=== PATIENT | male | born 1940 | race Caucasian/White ===

== ENCOUNTER 2018-06-11 15:23 | Observation (INO) | payer MEDICARE ==
[~2018-06-11] VITALS: Ht 167.6 cm; Wt 88.0 kg
[~2018-06-11 15:23] MED LIST: ASPI1TAB PO; ASPI81TA85 PO; CARV6.25 PO; DIGO0.126 PO; FLOM0.4C39 PO; FURO20TA2 PO; LASI20TA PO; LASI20TA3 PO; LOSA50TA20 PO; LOSA50TA88 PO; MULTTAB4 PO; TYLE325T5 PO; VITMTA PO
[2018-06-11] MEDS ORDERED: DERMABOND TOPICAL SKIN ADHESIVE TOP ONE (16:15)
--- NOTE | 2018-06-11 17:00 | REP ---
CT Head without contrast HISTORY: Syncope COMPARISON: 03/17/2015 Areas of decreased attenuation are present in the periventricular white matter. This represents small-vessel ischemic disease. A small area of decreased attenuation is present in the periventricular white matter of the left frontal and temporal lobes. There is dilatation of the anterior horn and body of the left lateral ventricle. This represents encephalomalacia. There is no intraparenchymal hemorrhage, acute infarct, mass or midline shift. The ventricular system and cortical sulci are dilated consistent with minimal volume loss. There is no extra cerebral collection. There is no fracture. Mucosal thickening is present in the left maxillary sinus. IMPRESSION: 1. Small vessel ischemic disease. 2. Left frontal temporal lobe encephalomalacia. 3. Minimal volume loss. Electronically Signed by Perico Duff MD 06/11/2018 04:51 P
--- NOTE | 2018-06-11 17:08 | REP ---
CT cervical spine without contrast HISTORY: Syncope COMPARISON: None There is no acute fracture or subluxation. A disc bulge is present at the C2-3 level. Disc bulges with associated osteophyte formation are present at the C3-4 through C7-T1 levels. There is minimal to moderate narrowing of the spinal canal. Uncinate process and/or facet hypertrophy are present at the C2-3 through C7-T1 levels. These findings produce minimal to severe narrowing of the neural foramina. The C3-4 through C7-T1 intervertebral discs are decreased in height consistent with disc degeneration. IMPRESSION: 1. There is no acute fracture or subluxation. 2. There is cervical spondylosis at the C2-3 through C7-T1 levels. Electronically Signed by Perico Duff MD 06/11/2018 04:59 P
--- NOTE | 2018-06-11 17:17 | REP ---
Chest one-view HISTORY: Syncope Comparison: 06/29/2013 A minimal increase in interstitial markings is present in the lungs consistent with chronic interstitial change. The heart is normal in size. The pulmonary vasculature is normal in appearance. Degenerative change is present in the shoulders. Impression: Chronic interstitial change. Electronically Signed by Perico Duff MD 06/11/2018 05:08 P
[2018-06-11 17:44] LABS: BASO % 0.3 % (0.0-1.0); EOS # 0.2 10^3/uL (0.0-0.50); EOS % 1.9 % (0.0-3.0); HEMATOCRIT 44.7 % (42.0-52.0); HEMOGLOBIN 15.1 g/dl (13.5-17.5); LYMPH # 1.1 10^3/uL (1.5-4.5); LYMPH % 13.3 % (24.0-44.0); MEAN CORPUSCULAR HEMOGLOBIN 30.2 pg (27.0-33.0); MEAN CORPUSCULAR HGB CONC 33.8 g/dl (32.0-36.5); MEAN CORPUSCULAR VOLUME 89.4 fl (80.0-96.0); MONO # 0.6 10^3/uL (0.0-0.8); MONO % 7.3 % (0.0-5.0); NEUTROPHILS # 6.6 10^3/uL (1.8-7.7); NEUTROPHILS % 76.9 % (36.0-66.0); PLATELET COUNT, AUTOMATED 171 10^3/uL (150-450); WHITE BLOOD COUNT 8.6 10^3/uL (4.0-10.0)
[2018-06-11 17:53] LABS: INR 1.03; PROTHROMBIN TIME 13.6 SECONDS (12.1-14.4)
[2018-06-11 17:54] LABS: PARTIAL THROMBOPLASTIN TIME 28.6 SECONDS (25.4-37.6)
--- NOTE | 2018-06-11 18:27 | REP ---
MAXILLOFACIAL CT WITHOUT CONTRAST: HISTORY: Syncope. There are fractures of the medial wall and floor of the left orbit. There is enlargement of the left inferior rectus muscle consistent with edema and or hematoma. Increased soft tissue density is present in the inferior aspect of the left orbit that represents edema and or hematoma. The remaining left rectus muscles, optic nerve, and globe are normal in appearance. Contents of the right orbit are normal. A small air fluid level is present in the left maxillary sinus. The remaining sinuses are clear. The osteomeatal units are patent. The middle and inferior nasal turbinates are partially paradoxical. There is essie bullosa on the left middle nasal turbinate. There is mild deviation of the nasal septum to the right. A small spur is present arising from the right side of the nasal septum. The cribriform plate, medial boone of the orbits and optic canals are intact. The carotid canals form a segment of the posterolateral boone of the sphenoid sinus. Soft-tissue swelling is present overlying the nasal bones and left maxillary sinus. IMPRESSION:There are fractures of the medial wall and floor of the left orbit. Electronically Signed by Perico Duff MD 06/11/2018 06:40 P
[2018-06-11 18:35] LABS: BLOOD UREA NITROGEN 20 MG/DL (7-18); CALCIUM LEVEL 8.3 MG/DL (8.8-10.2); CARBON DIOXIDE LEVEL 25 MEQ/L (21-32); CHLORIDE LEVEL 106 MEQ/L (98-107); CPK CREATINE PHOSPHOKINASE 112 U/L (39-308); CREATININE FOR GFR 0.82 MG/DL (0.70-1.30); ETHYL ALCOHOL (ETHANOL) < 0.003 % (0.000-0.010); GLOMERULAR FILTRATION RATE > 60.0 (>35); GLUCOSE, FASTING 114 MG/DL (70-100); MB/CK RELATIVE INDEX 1.96 (< OR =4); POTASSIUM SERUM 4.1 MEQ/L (3.5-5.1); SODIUM LEVEL 141 MEQ/L (136-145); THYROID STIMULATING HORMONE 0.122 uIU/ML (0.358-3.740); TROPONIN I < 0.02 NG/ML (< 0.10)
[2018-06-11] MEDS ORDERED: FLOM0.4C39 PO (19:56)
[2018-06-11] MEDS ORDERED: TERA5CAP3 PO (20:06)
[2018-06-11] MEDS ORDERED: FUROSEMIDE 20 MG TAB PO PRN (20:30)
[2018-06-11] MEDS ORDERED: ONDANSETRON 4MG/2ML VIAL (J2405) IV PRN (20:30)
[2018-06-11] MEDS ORDERED: ACETAMINOPHEN 325 MG TAB PO PRN (20:30)
[2018-06-11 20:39] LABS: FREE T4 1.24 NG/DL (0.76-1.46)
[2018-06-11] MEDS ORDERED: TAMSULOSIN 0.4 MG CAP PO SCH (21:00)
--- NOTE | 2018-06-11 21:24 | HPEPDOC ---
[facility] Medical History & Physical Date of Admission Jun 11, 2018 Other Provider Dictating/admitting: Emily Wisdom M.D. Attending Physician: OSCAR PLUNKETT MD History and Physical CHIEF COMPLAINT: Fall 1 day HISTORY OF PRESENT ILLNESS: Patient is an 78-year-old man with medical history significant for postpolio syndrome, congestive heart failure (unknown type), hypertension, BPH. According to him, he was in his usual state of health and ambulates with a cane. He went out to his mailbox and the next thing he remembered was staring up at his neighbor from the ground. He was not sure what happened as he had earlier reported at the emergency room, but at interview, he later reported that though he ambulates with his cane but forgot to activate the spikes at the bottom of the cane in case of ice, he slipped with his cane and fell face forward to the ground hurting his face. He denied any prior loss of consciousness before the incident. He denies any dizziness prior to the incident. He was evaluated in the emergency room with a small cut over his left eye which was treated with glue. Serial imaging done at the ER was unremarkable except fractures of the medial wall and floor of the left orbit seen on maxillofacial x-ray. ENT was curb sided and recommendation was no surgical intervention at this time. Patient should follow in the clinic. Patient denies any nausea, vomiting, chest pain, palpitations, cough, shortness of breath. No change in his bowel or urinary habits. PAST MEDICAL HISTORY: Per [facility] PAST SURGICAL HISTORY: Hernia repair. SOCIAL HISTORY: Patient lives next door to his daughter. He denies alcohol use, not currently smoking. He quit 47 years ago. He denies use of illicit drugs. FAMILY HISTORY: Father: from heart disease Mother: Siblings: Brother from complications of CHF Children: One son and one daughter. Of note, son has high blood pressure, GERD and hypothyroidism and daughter has GERD. ALLERGIES: Please see below. REVIEW OF SYSTEMS: 12 point review of systems negative other than that described in the body of [facility] HOME MEDICATIONS: Please see below. PHYSICAL EXAMINATION: VITAL SIGNS: Temperature 97, pulse 18, respiratory rate 78, blood pressure 145/69, pulse oximetry 97% on room air. GENERAL APPEARANCE: Elderly man, bruise over left orbit but lying calmly in bed, not in any apparent distress. He is not pale, anicteric and afebrile HEENT: Atraumatic. Neck: Supple. LUNGS: Clear to auscultation bilaterally. CARDIOVASCULAR: S1 and 2 heard, no murmurs, rubs or gallops. ABDOMEN: Obese, soft, not tender, not distended. Bowel sounds normoactive. MUSCULOSKELETAL: Apparently within normal limits. EXTREMITIES: No pedal edema, 2+ bilateral pedal pulses noted. NEUROLOGICAL: Awake, alert, oriented 3. PSYCHIATRIC: Normal affect LABORATORY DATA: See below. IMAGING: Maxillofacial x-ray: There are fractures of the medial wall and floor of the left orbit. CT head without contrast: 1. Small vessel ischemic disease. 2. Left frontal temporal lobe encephalomalacia. 3. Minimal volume loss. CT cervical spine without contrast: 1. There is no acute fracture or subluxation. 2. There is cervical spondylosis at the C2-3 through C7-T1 levels. Chest x-ray: Chronic interstitial change. EKG: Normal sinus rhythm, no acute ST or T-wave changes noted. MICROBIOLOGY: Please see below. ASSESSMENT: 78-year-old man with hypertension, BPH, CHF, had mechanical fall or possible syncope prior to fall with resultant trauma to the head with orbital fracture shown on imaging. ENT recommends patient should follow in the clinic as there is no surgical intervention indicated at this time. DIAGNOSES: 1. Mechanical fall/possible syncope. . PLAN: 1. I will admit patient to the PCU on observation under care of Dr. Plunkett 2. Possible syncope. We'll continue with cardiac monitoring. Echocardiogram in the morning. We will hold aspirin as patient had trauma to the head. He may rest art aspirin at discharge. 3. Hypertension. Will continue by mouth medications. Ex 4. Will resume outpatient medications. 5. GI prophylaxis that indicated at this time. 6. DVT prophylaxis, TEDs. 7. Further management will be per patient's clinical course. Vital Signs Vital Signs Date Time Temp Pulse Resp B/P (MAP) Pulse Ox O2 Delivery O2 Flow Rate FiO2 06/11/18 18:50 78 96 Room Air 06/11/18 18:45 145/69 (94) 06/11/18 15:36 99.0 17 Laboratory Data Labs 24H Laboratory Tests 2 06/11/18 17:33: Immature Granulocyte % (Auto) 0.3, White Blood Count 8.6, Red Blood Count 5.00, Hemoglobin 15.1, Hematocrit 44.7, Mean Corpuscular Volume 89.4, Mean Corpuscular Hemoglobin 30.2, Mean Corpuscular Hemoglobin Concent 33.8, Red Cell Distribution Width 13.0, Platelet Count 171, Neutrophils (%) (Auto) 76.9H, Lymphocytes (%) (Auto) 13.3L, Monocytes (%) (Auto) 7.3H, Eosinophils (%) (Auto) 1.9, Basophils (%) (Auto) 0.3, Neutrophils # (Auto) 6.6, Lymphocytes # (Auto) 1.1L, Monocytes # (Auto) 0.6, Eosinophils # (Auto) 0.2, Basophils # (Auto) 0.0, Nucleated Red Blood Cells % (auto) 0.0, Prothrombin Time 13.6, Prothromb Time International Ratio 1.03, Activated Partial Thromboplast Time 28.6, Anion Gap 10, Glomerular Filtration Rate > 60.0, Blood Urea Nitrogen 20H, Creatinine 0.82, Sodium Level 141, Potassium Level 4.1, Chloride Level 106, Carbon Dioxide Level 25, Calcium Level 8.3L, Total Creatine Kinase 112, Magnesium Level 2.0, Creatine Kinase MB 2.0, Creatine Kinase MB Relative Index 1.96, Troponin I < 0.02, Thyroid Stimulating Hormone (TSH) 0.122L, Free Thyroxine 1.24, Ethyl Alcohol Level < 0.003 06/11/18 17:51: Urine Color YELLOW, Urine Appearance HAZY, Urine pH 5.0, Urine Specific [place] 1.025, Urine Protein NEGATIVE, Urine Glucose (UA) NEGATIVE, Urine Ketones NEGATIVE, Urine Blood NEGATIVE, Urine Nitrite NEGATIVE, Urine Bilirubin NEGATIVE, Urine Urobilinogen 2.0H, Urine Leukocyte Esterase TRACEH, Urine WBC (Auto) 2, Urine RBC (Auto) 3, Urine Hyaline Casts (Auto) 1, Urine Bacteria (Auto) NEGATIVE, Urine Squamous Epithelial Cells 0, Urine Calcium Oxalate Cryst (Auto) LARGE, Urine Mucus (Auto) SMALL, Urine Sperm (Auto) , Bedside Glucose (M isc Panel) 136H CBC/BMP Laboratory Tests 06/11/18 17:33 Red Blood Count 5.00, Mean Corpuscular Volume 89.4, Mean Corpuscular Hemoglobin 30.2, Mean Corpuscular Hemoglobin Concent 33.8, Red Cell Distribution Width 13.0, Neutrophils (%) (Auto) 76.9 H, Lymphocytes (%) (Auto) 13.3 L, Monocytes (%) (Auto) 7.3 H, Eosinophils (%) (Auto) 1.9, Basophils (%) (Auto) 0.3, Neutrophils # (Auto) 6.6, Lymphocytes # (Auto) 1.1 L, Monocytes # (Auto) 0.6, Eosinophils # (Auto) 0.2, Basophils # (Auto) 0.0, Calcium Level 8.3 L, Total Creatine Kinase 112 Microbiology Microbiology 06/11/18 Urine Culture, Received Pending Home Medications Scheduled Aspirin (Aspirin 81) 81 Mg Tab, 81 MG PO DAILY Carvedilol (Carvedilol) 6.25 Mg Tab, 6.25 MG PO BID Losartan Potassium (Losartan Potassium) 50 Mg Tab, 50 MG PO DAILY Multivitamins *[facility] STOCKED* (Thera M Plus *[facility] STOCKED*) 1 Tab Tab, 1 TAB PO DAILY Tamsulosin Hydrochloride (Flomax) 0.4 Mg Cap, 0.4 MG PO QHS Terazosin HCl (Terazosin HCl) 5 Mg Cap, 5 MG PO QPM Scheduled PRN Acetaminophen (Tylenol) 325 Mg Tab, 325 MG PO Q4H PRN for PAIN Furosemide (Lasix) 20 Mg Tab, 20 MG PO DAILY PRN for SWELLING Allergies Coded Allergies: Lisinopril (Verified Allergy, 06/29/13) EMILY WISDOM MD Jun 11, 2018 21:24
[2018-06-11] MEDS: CARVedilol 6.25 MG TAB PO SCH (21:48)
[2018-06-11 23:06] VITALS: BP 143/70
[2018-06-11] MEDS ORDERED: SLF 3 ML SYR IV PRN (23:30)
[2018-06-12 04:00] VITALS: BP 130/76
[2018-06-12] MEDS: SLF 3 ML SYR IV SCH ×3 (05:25→21:24)
[2018-06-12 05:44] LABS: BASO % 0.6 % (0.0-1.0); EOS # 0.3 10^3/uL (0.0-0.50); EOS % 4.4 % (0.0-3.0); HEMATOCRIT 41.4 % (42.0-52.0); LYMPH # 1.6 10^3/uL (1.5-4.5); LYMPH % 22.4 % (24.0-44.0); MEAN CORPUSCULAR HGB CONC 33.8 g/dl (32.0-36.5); MEAN CORPUSCULAR VOLUME 88.8 fl (80.0-96.0); MONO # 0.8 10^3/uL (0.0-0.8); MONO % 11.3 % (0.0-5.0); NEUTROPHILS # 4.4 10^3/uL (1.8-7.7); PLATELET COUNT, AUTOMATED 169 10^3/uL (150-450); RED BLOOD COUNT 4.66 10^6/uL (4.30-6.10); WHITE BLOOD COUNT 7.2 10^3/uL (4.0-10.0)
[2018-06-12 06:09] LABS: BLOOD UREA NITROGEN 15 MG/DL (7-18); CARBON DIOXIDE LEVEL 28 MEQ/L (21-32); CHLORIDE LEVEL 108 MEQ/L (98-107); CREATININE FOR GFR 0.81 MG/DL (0.70-1.30); GLOMERULAR FILTRATION RATE > 60.0 (>35); GLUCOSE, FASTING 91 MG/DL (70-100); POTASSIUM SERUM 3.2 MEQ/L (3.5-5.1); SODIUM LEVEL 144 MEQ/L (136-145)
[2018-06-12] MEDS ORDERED: POTASSIUM CHLORIDE 10 MEQ SR TABLET PO ONE (07:45)
[2018-06-12 08:00] VITALS: BP 118/65
[2018-06-12] MEDS ORDERED: TERAZOSIN 5 MG CAP PO SCH ×2 (09:00→21:00)
[2018-06-12] MEDS: PANTOPRAZOLE 40MG TAB (PROTONIX) PO SCH ×2 (09:26→09:37)
[2018-06-12] MEDS: CARVedilol 6.25 MG TAB PO SCH ×2 (09:27→20:42)
[2018-06-12] MEDS: LOSARTAN 50 MG TAB PO SCH (09:28)
[2018-06-12 12:00] VITALS: BP_SYST 146; BP_SYST 156; BP_SYST 165; BP_DIAS 75; BP_DIAS 79; BP_DIAS 83
[2018-06-12 16:00] VITALS: BP 133/64
--- NOTE | 2018-06-12 16:42 | IPNPDOC ---
Date Seen The patient was seen on 06/12/18. Progress Note SUBJECTIVE: Patient is an 78-year-old male with mechanical fall resulting in trauma to his left eye. He is evaluated at bedside this morning. He states that he was walking to his mailbox when he put his cane out to support himself and it slipped out in front of him resulting in his left eye connecting with the mailbox causing injury. He did not lose consciousness, have bowel or bladder incontinence, feel lightheaded or dizzy, or describe episodes of chest pain. OBJECTIVE PHYSICAL EXAMINATION: VITAL SIGNS: Please see below. GENERAL: Gregarious elderly male, alert and conversant, answers questions appropriately, appropriately dressed, no acute distress. HEENT: [id number] ecchymosis noted around the upper and lower lids of left eye, no subconjunctival hemorrhage, no pain with eye movement, PERRL, EOMI, oral mucosa appears pink and moist, nasal septum appears midline, nares are patent. CARDIOVASCULAR: Regular rate and rhythm, normal S1 and S2. RESPIRATORY: Clear to auscultation bilaterally, adequate inspiratory and expiratory airway excursion, symmetric airway entry, no focal consolidations, no wheeze, rhonchi, crackles. ABDOMINAL: Round, soft, non-tender, non-distended. EXTREMITIES: Warm, dry, intact, no clubbing, no cyanosis, no peripheral edema. NEUROLOGICAL: No focal neurological deficits. PSYCHOLOGICAL: Mood and affect appropriate. LABORATORY DATA, IMAGING STUDIES, MICROBIOLOGY: Please see below. CT maxilofacial without contrast on 06/11/2018 - There are fractures of the medial wall and floor of the left orbit. Head CT without contrast on 06/11/2018 - Small vessel ischemic disease. Left frontal temporal lobe encephalomalacia. Minimal volume loss. Portable chest x-ray on 06/11/2018 - Chronic interstitial change. CT cervical spine without contrast on 06/11/2018 - There is no acute fracture or subluxation. There is cervical spondylosis at the C2-3 through C7-T1 levels. Echocardiogram: Completed. DVT prophylaxis ordered?: Ricardo. ASSESSMENT AND PLAN: This is an 78-year-old male with mechanical fall resulting in injury. PROBLEMS: 1. Mechanical fall resulting in injury: Alert and conversant. Echocardiogram is completed. Holding Lasix. Obtaining orthostatic vital signs which appear to be negative. Evaluated by physical therapy and safe to be discharge to previous living situation when medically cleared. Aspirin held. Head CT negative for hemorrhage. Continue Aspirin at time of discharge. 2. Left orbit medial wall and floor fractures: No immediate surgical intervention required. Out-patient follow up with ENT. 3. Hypokalemia: Supplemented. 4. Hypertension: Continue Coreg and Losartan. 5. Benign prostatic hyperplasia: Continue Terazosin. DISPOSITION: Echocardiogram report. Potential discharge in 24 hours. VS, I&O, 24H, Fishbone Vital Signs/I&O Vital Signs Date Time Temp Pulse Resp B/P (MAP) Pulse Ox O2 Delivery O2 Flow Rate FiO2 06/12/18 12:00 77 146/83 (104) 72 156/75 (102) 83 165/79 (107) 06/12/18 12:00 97.7 20 94 Room Air I&O- Last 24 Hours up to 6 AM 06/12/18 05:59 Intake Total 0 ml Output Total 0 ml Balance 0 ml Laboratory Data 24H LABS Laboratory Tests 2 06/11/18 17:33: Immature Granulocyte % (Auto) 0.3, White Blood Count 8.6, Red Blood Count 5.00, Hemoglobin 15.1, Hematocrit 44.7, Mean Corpuscular Volume 89.4, Mean Corpuscular Hemoglobin 30.2, Mean Corpuscular Hemoglobin Concent 33.8, Red Cell Distribution Width 13.0, Platelet Count 171, Neutrophils (%) (Auto) 76.9H, Lymphocytes (%) (Auto) 13.3L, Monocytes (%) (Auto) 7.3H, Eosinophils (%) (Auto) 1.9, Basophils (%) (Auto) 0.3, Neutrophils # (Auto) 6.6, Lymphocytes # (Auto) 1.1L, Monocytes # (Auto) 0.6, Eosinophils # (Auto) 0.2, Basophils # (Auto) 0.0, Nucleated Red Blood Cells % (auto) 0.0, Prothrombin Time 13.6, Prothromb Time International Ratio 1.03, Activated Partial Thromboplast Time 28.6, Anion Gap 10, Glomerular Filtration Rate > 60.0, Blood Urea Nitrogen 20H, Creatinine 0.82, Sodium Level 141, Potassium Level 4.1, Chloride Level 106, Carbon Dioxide Level 25, Calcium Level 8.3L, Total Creatine Kinase 112, Magnesium Level 2.0, Creatine Kinase MB 2.0, Creatine Kinase MB Relative Index 1.96, Troponin I < 0.02, Thyroid S timulating Hormone (TSH) 0.122L, Free Thyroxine 1.24, Ethyl Alcohol Level < 0.003 06/11/18 17:51: Urine Color YELLOW, Urine Appearance HAZY, Urine pH 5.0, Urine Specific [place] 1.025, Urine Protein NEGATIVE, Urine Glucose (UA) NEGATIVE, Urine Ketones NEGATIVE, Urine Blood NEGATIVE, Urine Nitrite NEGATIVE, Urine Bilirubin NEGATIVE, Urine Urobilinogen 2.0H, Urine Leukocyte Esterase TRACEH, Urine WBC (Auto) 2, Urine RBC (Auto) 3, Urine Hyaline Casts (Auto) 1, Urine Bacteria (A uto) NEGATIVE, Urine Squamous Epithelial Cells 0, Urine Calcium Oxalate Cryst (Auto) LARGE, Urine Mucus (Auto) SMALL, Urine Sperm (Auto) , Bedside Glucose (Misc Panel) 136H 06/12/18 05:18: Immature Granulocyte % (Auto) 0.3, White Blood Count 7.2, Red Blood Count 4.66, Hemoglobin 14.0, Hematocrit 41.4L, Mean Corpuscular Volume 88.8, Mean Corpuscular Hemoglobin 30.0, Mean Corpuscular Hemoglobin Concent 33.8, Red Cell Distribution Width 12.8, Platelet Count 169, Neutrophils (%) (Auto) 61.0, Lymphocytes (%) (Auto) 22.4L, Monocytes (%) (Auto) 11.3H, Eosinophils (%) (Auto) 4.4H, Basophils (%) (Auto) 0.6, Neutrophils # (Auto) 4.4, Lymphocytes # (Auto) 1.6, Monocytes # (Auto) 0.8, Eosinophils # (Auto) 0.3, Basophils # (Auto) 0.0, Nucleated Red Blood Cells % (auto) 0.0, Anion Gap 8, Glomerular Filtration Rate > 60.0, Blood Urea Nitrogen 15, Creatinine 0.81, Sodium Level 144, Potassium Level 3.2#L, Chloride Level 108H, Carbon Dioxide Level 28, Calcium Level 8.0L CBC/BMP Laboratory Tests 06/11/18 17:33 Red Blood Count 5.00, Mean Corpuscular Volume 89.4, Mean Corpuscular Hemoglobin 30.2, Mean Corpuscular Hemoglobin Concent 33.8, Red Cell Distribution Width 13.0, Neutrophils (%) (Auto) 76.9 H, Lymphocytes (%) (Auto) 13.3 L, Monocytes (%) (Auto) 7.3 H, Eosinophils (%) (Auto) 1.9, Basophils (%) (Auto) 0.3, Neutrophils # (Auto) 6.6, Lymphocytes # (Auto) 1.1 L, Monocytes # (Auto) 0.6, Eosinophils # (Auto) 0.2, Basophils # (Auto) 0.0, Calcium Level 8.3 L, Total Creatine Kinase 112 06/12/18 05:18 Red Blood Count 4.66, Mean Corpuscular Volume 88.8, Mean Corpuscular Hemoglobin 30.0, Mean Corpuscular Hemoglobin Concent 33.8, Red Cell Distribution Width 12.8, Neutrophils (%) (Auto) 61.0, Lymphocytes (%) (Auto) 22.4 L, Monocytes (%) (Auto) 11.3 H, Eosinophils (%) (Auto) 4.4 H, Basophils (%) (Auto) 0.6, Neutrophils # (Auto) 4.4, Lymphocytes # (Auto) 1.6, Monocytes # (Auto) 0.8, Eosinophils # (Auto) 0.3, Basophils # (Auto) 0.0, Calcium Level 8.0 L Microbiology Microbiology 06/11/18 Urine Culture - Final, Complete AMANDA FLORES DO Jun 12, 2018 16:42
--- NOTE | 2018-06-12 19:44 | ECGEPIP ---
Stationary ECG Study [facility] - ED Test Date: 2018-06-11 Pat Name: JACQUELINE BROWN Department: Room: - Gender: M Business Analytics Director: beth : 1940 Requested By: TOSHA Grove Order Number: [id number] Reading MD: Drea Peoples Measurements Intervals Brush Rate: 73 P: 64 MD: 149 QRS: 1 QRSD: 97 T: -7 QT: 377 QTc: 418 Interpretive Statements SINUS RHYTHM WITH OCCASIONAL VENTRICULAR PREMATURE COMPLEXES LOW QRS VOLTAGE IN PRECORDIAL LEADS INFERIOR MYOCARDIAL INFARCTION, OF INDETERMINATE AGE BASELINE ARTIFACT DELAYED R WAVE PROGRESSION CW 03/17/[address] T WAVE CHANGES Electronically Signed On 06-12-2018 19:43:44 EST by Drea Peoples
[2018-06-12 20:00] VITALS: BP 148/80
[2018-06-13] VITALS: BP 113/59
[2018-06-13 04:00] VITALS: BP 109/55
[2018-06-13] MEDS: SLF 3 ML SYR IV SCH (05:27)
[2018-06-13 06:08] LABS: HEMATOCRIT 43.7 % (42.0-52.0); HEMOGLOBIN 14.6 g/dl (13.5-17.5); MEAN CORPUSCULAR HEMOGLOBIN 29.4 pg (27.0-33.0); MEAN CORPUSCULAR HGB CONC 33.4 g/dl (32.0-36.5); MEAN CORPUSCULAR VOLUME 88.1 fl (80.0-96.0); PLATELET COUNT, AUTOMATED 189 10^3/uL (150-450); RED BLOOD COUNT 4.96 10^6/uL (4.30-6.10); WHITE BLOOD COUNT 6.9 10^3/uL (4.0-10.0)
[2018-06-13 06:23] LABS: BLOOD UREA NITROGEN 15 MG/DL (7-18); CALCIUM LEVEL 8.3 MG/DL (8.8-10.2); CARBON DIOXIDE LEVEL 28 MEQ/L (21-32); CHLORIDE LEVEL 107 MEQ/L (98-107); CREATININE FOR GFR 0.85 MG/DL (0.70-1.30); GLOMERULAR FILTRATION RATE > 60.0 (>35); GLUCOSE, FASTING 93 MG/DL (70-100); POTASSIUM SERUM 3.5 MEQ/L (3.5-5.1); SODIUM LEVEL 143 MEQ/L (136-145)
--- NOTE | 2018-06-13 06:25 | ECHO ---
DATE OF PROCEDURE: 06/12/2018 REFERRING PHYSICIAN: Dr. Wisdom. INDICATION: Syncope. HEIGHT: 168 cm. WEIGHT: 92 kg. DIMENSIONS: IVS: 1.2 LV: 4.5 LVPW: 1.2 LA: 2.9 Aorta: 2.9 IVC: 1.7 Mitral E wave velocity: 51 A wave: 70 E prime septal: 4.1 E prime lateral: 3.6 FINDINGS: The study is of difficult technical quality. Left ventricle is normal size and overall grossly normal systolic function, I estimate ejection fraction around 55%. I do not appreciate any distinct wall motion abnormality but visualization was limited. Right ventricle does not appear grossly enlarged. Both atria appear normal. Aortic valve is mildly sclerotic but has normal mobility. There are also degenerative abnormalities of mitral valve but mitral valve mobility is preserved. Tricuspid valve is normal. Pulmonic valve was not well seen. No pericardial effusion is noted. Inferior vena cava is normal size. Aortic root is normal. Aortic arch and abdominal aorta were not well seen. Doppler interrogation reveals no aortic stenosis or insufficiency. There is trace mitral insufficiency and trace tricuspid insufficiency. Calculated pulmonary artery pressure is within normal limits. Mitral inflow pattern and tissue Doppler imaging of mitral annulus reveal grade 1 diastolic dysfunction. CONCLUSIONS: 1. Study is of fair technical quality. 2. Normal LV size with mild LVH and grossly preserved LV systolic function. Grade 1 diastolic dysfunction. 3. Mild degenerative abnormalities of aortic and mitral valves but no functional impairment of either, likely normal central venous pressure and normal pulmonary artery pressure. COMMENTS: SBE prophylaxis is not recommended. No findings to explain syncopal event.
[2018-06-13 08:00] VITALS: BP 132/73
[2018-06-13 08:20] VITALS: BP 132/73
[2018-06-13] MEDS: CARVedilol 6.25 MG TAB PO SCH (08:20)
[2018-06-13] MEDS: LOSARTAN 50 MG TAB PO SCH (08:20)
[2018-06-13] MEDS: PANTOPRAZOLE 40MG TAB (PROTONIX) PO SCH (08:21)
--- NOTE | 2018-06-13 16:50 | DS.PDOC ---
Discharge Summary General Date of Admission Jun 11, 2018 at 20:27 Date of Discharge 06/13/2018 Attending Physician: OSCAR PLUNKETT MD Specialist/Consultants Involve Primary care provider: Dr. Aron Decker Discharge Summary PROCEDURES PERFORMED DURING STAY: 1. Transthoracic echocardiogram - grade 1 diastolic dysfunction. ADMITTING DIAGNOSES: 1. Mechanical fall. 2. Possible syncope. DISCHARGE DIAGNOSES: 1. Mechanical fall resulting in injury. 2. Left orbit medial wall and floor fractures. 3. Hypokalemia. 4. Hypertension. 5. Benign prostatic hyperplasia. COMPLICATIONS/CHIEF COMPLAINT: Laceration Of Head, Syncope. HISTORY OF PRESENT ILLNESS: Mr. Fraire is an 78-year-old man with medical history significant for postpolio syndrome, congestive heart failure (unknown type), hypertension, BPH. According to him, he was in his usual state of health and ambulates with a cane. He went out to his mailbox and the next thing he remembered was staring up at his neighbor from the ground. He was not sure what happened as he had earlier reported at the emergency room, but at interview, he later reported that though he ambulates with his cane but forgot to activate the spikes at the bottom of the cane in case of ice, he slipped with his cane and fell face forward to the ground hurting his face. He denied any prior loss of consciousness before the incident. He denies any dizziness prior to the incident. He was evaluated in the emergency room with a small cut over his left eye which was treated with glue. Serial imaging done at the ER was unremarkable except fractures of the medial wall and floor of the left orbit seen on maxillofacial x-ray. ENT was curb sided and recommendation was no surgical intervention at this time. Patient should follow in the clinic. Patient denies any nausea, vomiting, chest pain, palpitations, cough, shortness of breath. No change in his bowel or urinary habits. HOSPITAL COURSE: Patient was admitted to the progressive care unit. Echocardiogram was obtained with results reported above. Aspirin was on hold with directions to restart at time of discharge. Electrolyte derangements were supplemented. Chronic medical conditions were otherwise treated appropriately. Patient will follow-up with ENT as outpatient. Patient to follow-up with primary care provider once discharged. Patient stable at time of discharge. DISCHARGE MEDICATIONS: Please see below. ALLERGIES: Please see below. PHYSICAL EXAMINATION ON DISCHARGE: VITAL SIGNS: Please see below. GENERAL: Gregarious elderly male, alert and conversant, answers questions appropriately, appropriately dressed, no acute distress. HEENT: [id number] ecchymosis noted around the upper and lower lids of left eye, no subconjunctival hemorrhage, no pain with eye movement, PERRL, EOMI, oral mucosa appears pink and moist, nasal septum appears midline, nares are patent. CARDIOVASCULAR: Regular rate and rhythm, normal S1 and S2. RESPIRATORY: Clear to auscultation bilaterally, adequate inspiratory and expiratory airway excursion, symmetric airway entry, no focal consolidations, no wheeze, rhonchi, crackles. ABDOMINAL: Round, soft, non-tender, non-distended. EXTREMITIES: Warm, dry, intact, no clubbing, no cyanosis, no peripheral edema. NEUROLOGICAL: No focal neurological deficits. PSYCHOLOGICAL: Mood and affect appropriate. LABORATORY DATA: Please see below. IMAGIN. CT maxilofacial without contrast on 06/11/2018 - There are fractures of the m edial wall and floor of the left orbit. 2. Head CT without contrast on 06/11/2018 - Small vessel ischemic disease. Left frontal temporal lobe encephalomalacia. Minimal volume loss. 3. Portable chest x-ray on 06/11/2018 - Chronic interstitial change. 4. CT cervical spine without contrast on 06/11/2018 - There is no acute fracture or subluxation. There is cervical spondylosis at the C2-3 through C7-T1 levels. PROGNOSIS: Stable. ACTIVITY: Use cane for stability and ambulation. DIET: 2 g sodium. DISCHARGE PLAN: Problem: Managing health at home Goal: Improve health & wellness Instructions: Follow DC Instruction DISPOSITION: 01 Home, Self-Care. DISCHARGE INSTRUCTIONS: 1. Follow-up with primary care provider, Dr. Decker, on 06/20/2018 at 9:30 AM. 2. ENT will call you with an appointment date and time in 1-2 days; if ENT has not called please call them on [phone] to confirm appointment. 3. Resume aspirin as previously prescribed. 4. Ambulate with cane. 5. Return to the nearest emergency department should any of your symptoms worsen or persist. ITEMS TO FOLLOWUP ON ON OUTPATIENT: 1. Left orbital wall and floor fracture. DISCHARGE CONDITION: Stable. TIME SPENT ON DISCHARGE: Greater than 30 minutes. Vital Signs/I&Os Vital Signs Date Time Temp Pulse Resp B/P (MAP) Pulse Ox O2 Delivery O2 Flow Rate FiO2 06/13/18 08:20 67 132/73 06/13/18 08:00 97.6 18 97 Room Air I&O- Last 24 Hours up to 6 AM 06/13/18 06:00 Intake Total 840 ml Output Total 650 ml Balance 190 ml Laboratory Data Labs 24H Laboratory Tests 2 06/13/18 05:37: Nucleated Red Blood Cells % (auto) 0.0, Anion Gap 8, Glomerular Filtration Rate > 60.0, Blood Urea Nitrogen 15, Creatinine 0.85, Sodium Level 143, Potassium Level 3.5, Chloride Level 107, Carbon Dioxide Level 28, Calcium Level 8.3L CBC/BMP Laboratory Tests 06/13/18 05:37 Red Blood Count 4.96, Mean Corpuscular Volume 88.1, Mean Corpuscular Hemoglobin 29.4, Mean Corpuscular Hemoglobin Concent 33.4, Red Cell Distribution Width 13.1, Calcium Level 8.3 L Microbiology Microbiology 06/11/18 Urine Culture - Final, Complete Discharge Medications Scheduled Aspirin (Aspirin 81) 81 Mg Tab, 81 MG PO DAILY, (Reported) Carvedilol (Carvedilol) 6.25 Mg Tab, 6.25 MG PO BID, (Reported) Losartan Potassium (Losartan Potassium) 50 Mg Tab, 50 MG PO DAILY, (Reported) Multivitamins *[facility] STOCKED* (Thera M Plus *[facility] STOCKED*) 1 Tab Tab, 1 TAB PO DAILY, (Reported) Terazosin HCl (Terazosin HCl) 5 Mg Cap, 5 MG PO QPM, (Reported) Scheduled PRN Acetaminophen (Tylenol) 325 Mg Tab, 325 MG PO Q4H PRN for PAIN, (Reported) Furosemide (Lasix) 20 Mg Tab, 20 MG PO DAILY PRN for SWELLING, (Reported) Allergies Coded Allergies: Lisinopril (Verified Allergy, 06/29/13) AMANDA FLORES DO Jun 13, 2018 16:50
== END 2018-06-13 11:50 | disposition home or self-care (01) ==
LOC: M ED 15:23 → M ED INP 20:27 → M PCU 23:01
PROVIDERS: ADMIT Hospitalist; ATTEND Internal Medicine
DX: S02.32XA Fracture of orbital floor, left side, initial encounter for closed fracture (principal); S01.112A Laceration without foreign body of left eyelid and periocular area, initial encounter; W19.XXXA Unspecified fall, initial encounter; Y92.014 Private driveway to single-family (private) house as the place of occurrence of the external cause; Y93.89 Activity, other specified; Y99.9 Unspecified external cause status; E87.6 Hypokalemia; I11.9 Hypertensive heart disease without heart failure; I50.30 Unspecified diastolic (congestive) heart failure; Z79.82 Long term (current) use of aspirin; Z87.891 Personal history of nicotine dependence; Z79.899 Other long term (current) drug therapy; Z88.8 Allergy status to other drugs, medicaments and biological substances
CPT/HCPCS: 12011; 36415; 70450; 70486; 71045; 72125; 80048; 81001; 82550; 82553; 83735; 84439; 84443; 84484; 85025; 85027; 85610; 85730; 87086; 93005; 93041; 93306; 94760; 97161; 99285; G0378; G0480

== ENCOUNTER → 2020-12-02 | Outpatient (REF) | payer MEDICARE ==
[~2020-12-02] MED LIST changes: -ASPI1TAB PO; +ASPI81TA26 PO; +TERA5CAP3 PO
== END ==
LOC: M LAB REF 19:15
PROVIDERS: ATTEND Physician Assistant
DX: L02.212 Cutaneous abscess of back [any part, except buttock and flank] (principal)

== ENCOUNTER 2021-08-26 10:55 | Emergency (ER) | payer MEDICARE ==
[~2021-08-26] VITALS: Ht 167.6 cm; Wt 95.5 kg
[~2021-08-26 10:55] MED LIST changes: +LOSA50TA28 PO; -LOSA50TA88 PO
[2021-08-26 14:18] LABS: BASO # 0.1 10^3/uL (0.0-0.2); BASO % 0.8 % (0.0-1.0); EOS # 0.3 10^3/uL (0.0-0.5); EOS % 3.7 % (0.0-3.0); HEMATOCRIT 42.8 % (42.0-52.0); HEMOGLOBIN 14.3 g/dl (13.5-17.5); LYMPH # 1.7 10^3/uL (1.5-5.0); MEAN CORPUSCULAR HEMOGLOBIN 29.9 pg (27.0-33.0); MEAN CORPUSCULAR HGB CONC 33.4 g/dl (32.0-36.5); MEAN CORPUSCULAR VOLUME 89.4 fl (80.0-96.0); MONO # 0.7 10^3/uL (0.0-0.8); MONO % 9.2 % (2.0-8.0); NEUTROPHILS # 4.4 10^3/uL (1.5-8.5); PLATELET COUNT, AUTOMATED 199 10^3/uL (150-450); RED BLOOD COUNT 4.79 10^6/uL (4.30-6.10); WHITE BLOOD COUNT 7.1 10^3/uL (4.0-10.0)
[2021-08-26 14:36] LABS: ERYTHROCYTE SEDIMENTATION RATE 8 mm/hr (0-20)
[2021-08-26 14:55] LABS: ALBUMIN 3.9 GM/DL (3.2-5.2); ALT/SGPT 27 U/L (12-78); BILIRUBIN,TOTAL 0.6 MG/DL (0.2-1.0); BLOOD UREA NITROGEN 22 MG/DL (7-18); C REACTIVE PROTEIN QUANTITATIV 0.46 MG/DL (0.00-0.30); CARBON DIOXIDE LEVEL 28 MEQ/L (21-32); CHLORIDE LEVEL 107 MEQ/L (98-107); GLOMERULAR FILTRATION RATE > 60.0 (>35); GLUCOSE, FASTING 97 MG/DL (70-100); POTASSIUM SERUM 4.1 MEQ/L (3.5-5.1); SODIUM LEVEL 140 MEQ/L (136-145); TOTAL PROTEIN 6.6 GM/DL (6.4-8.2); VITAMIN B12 LEVEL 778 PG/ML (247-911)
[2021-08-26 18:03] VITALS: BP 122/68
== END 2021-08-26 18:04 | disposition home or self-care (01) ==
LOC: M ED 10:55
DX: M48.061 Spinal stenosis, lumbar region without neurogenic claudication (principal); M62.81 Muscle weakness (generalized); I10 Essential (primary) hypertension; I51.9 Heart disease, unspecified; Z88.8 Allergy status to other drugs, medicaments and biological substances; Z79.899 Other long term (current) drug therapy

== ENCOUNTER 2021-09-22 08:45 | Outpatient (RCR) | payer MEDICARE | END 2021-09-25 | LOC: M PT 08:45 | PROVIDERS: ATTEND Orthopaedic Surgery | DX: M48.061 Spinal stenosis, lumbar region without neurogenic claudication (principal); M21.371 Foot drop, right foot; M21.372 Foot drop, left foot ==

== ENCOUNTER 2021-10-07 09:30 | Outpatient (RCR) | payer MEDICARE | END 2021-10-26 | LOC: M PT 09:30 | PROVIDERS: ATTEND Orthopaedic Surgery | DX: M48.061 Spinal stenosis, lumbar region without neurogenic claudication (principal); M21.371 Foot drop, right foot; M21.372 Foot drop, left foot ==

== ENCOUNTER 2022-01-20 09:10 | Outpatient (RCR) | payer MEDICARE | END 2022-01-26 | LOC: M PT 09:10 | PROVIDERS: ATTEND Orthopaedic Surgery | DX: M48.00 Spinal stenosis, site unspecified (principal); Z86.12 Personal history of poliomyelitis ==

== ENCOUNTER → 2022-05-24 | Outpatient (CLI) | payer MEDICARE ==
[2022-05-24 09:46] LABS: HEMATOCRIT 40.9 % (42.0-52.0); HEMOGLOBIN 13.3 g/dl (13.5-17.5); MEAN CORPUSCULAR HEMOGLOBIN 29.6 pg (27.0-33.0); MEAN CORPUSCULAR HGB CONC 32.5 g/dl (32.0-36.5); MEAN CORPUSCULAR VOLUME 90.9 fl (80.0-96.0); PLATELET COUNT, AUTOMATED 207 10^3/uL (150-450); WHITE BLOOD COUNT 6.8 10^3/uL (4.0-10.0)
[2022-05-24 10:19] LABS: ALBUMIN 3.5 G/DL (3.2-5.2); ALKALINE PHOSPHATASE 103 U/L (46-116); ALT/SGPT 38 U/L (7.0-40); AST/SGOT 35 U/L (<34); BILIRUBIN,TOTAL 0.5 MG/DL (0.3-1.2); BLOOD UREA NITROGEN 24 MG/DL (9-23); CALCIUM LEVEL 8.9 MG/DL (8.3-10.6); CARBON DIOXIDE LEVEL 30 MMOL/L (20-31); CHLORIDE LEVEL 107 MMOL/L (98-107); CREATININE FOR GFR 0.88 MG/DL (0.70-1.30); GLOMERULAR FILTRATION RATE > 60.0 (>35); GLUCOSE, FASTING 107 MG/DL (74-106); POTASSIUM SERUM 4.1 MMOL/L (3.5-5.1); SODIUM LEVEL 143 MMOL/L (136-145); TOTAL PROTEIN 6.4 G/DL (5.7-8.2)
[2022-05-24 10:30] LABS: THYROID STIMULATING HORMONE 0.168 uIU/ML (0.55-4.78)
== END ==
LOC: M LAB 09:20
PROVIDERS: ATTEND Internal Medicine
DX: I42.9 Cardiomyopathy, unspecified (principal); Z79.899 Other long term (current) drug therapy

== ENCOUNTER 2023-01-08 23:27 | Observation (INO) | payer MEDICARE ==
[~2023-01-08] VITALS: Ht 167.6 cm; Wt 90.9 kg
[2023-01-09] MEDS ORDERED: NORCO, ANEXSIA 5/325MG TABLET (HYDROcodone/ACETAMINOPHEN) PO ONE (02:10)
[2023-01-09 02:43] LABS: BASO # 0.1 10^3/uL (0.0-0.2); BASO % 0.6 % (0.0-1.0); EOS # 0.1 10^3/uL (0.0-0.5); EOS % 0.8 % (0.0-3.0); HEMATOCRIT 38.6 % (42.0-52.0); LYMPH # 1.2 10^3/uL (1.5-5.0); MEAN CORPUSCULAR HEMOGLOBIN 29.9 pg (27.0-33.0); MEAN CORPUSCULAR HGB CONC 33.7 g/dl (32.0-36.5); MEAN CORPUSCULAR VOLUME 88.7 fl (80.0-96.0); MONO # 1.4 10^3/uL (0.0-0.8); MONO % 18.6 % (2.0-8.0); NEUTROPHILS % 64.9 % (36.0-66.0); PLATELET COUNT, AUTOMATED 172 10^3/uL (150-450); RED BLOOD COUNT 4.35 10^6/uL (4.30-6.10); WHITE BLOOD COUNT 7.8 10^3/uL (4.0-10.0)
[2023-01-09] MEDS ORDERED: APAP325T4 PO (03:00)
[2023-01-09] MEDS ORDERED: LOSA100T46 PO (03:00)
[2023-01-09] MEDS ORDERED: HOME MED LIST COMPLETE! XX SCH (03:05)
[2023-01-09 03:07] LABS: BLOOD UREA NITROGEN 35 MG/DL (9-23); CALCIUM LEVEL 8.1 MG/DL (8.3-10.6); CARBON DIOXIDE LEVEL 25 MMOL/L (20-31); CHLORIDE LEVEL 107 MMOL/L (98-107); CREATININE FOR GFR 1.14 MG/DL (0.70-1.30); GLOMERULAR FILTRATION RATE > 60.0 (>35); GLUCOSE, FASTING 105 MG/DL (74-106); POTASSIUM SERUM 3.6 MMOL/L (3.5-5.1); SODIUM LEVEL 142 MMOL/L (136-145)
[2023-01-09] MEDS ORDERED: BISACODYL 10MG SUPP PR PRN (04:20)
[2023-01-09] MEDS ORDERED: ONDANSETRON 4MG TAB PO PRN (04:20)
[2023-01-09] MEDS ORDERED: ACETAMINOPHEN TAB 650MG DOSE (2X325MG) PO PRN (04:20)
[2023-01-09] MEDS: ASPIRIN 81MG ENTERIC TABLET PO SCH (07:34)
[2023-01-09] MEDS: MULTIVITAMINS/MINERALS THERAP 1 TAB PO SCH (07:35)
[2023-01-09] MEDS: CARVedilol 6.25 MG TAB PO SCH ×2 (07:35→21:30)
[2023-01-09] MEDS: LOSARTAN 50MG TABLET PO SCH (07:35)
[2023-01-09] MEDS: FUROSEMIDE 20 MG TAB PO SCH (07:35)
[2023-01-09] MEDS: HEPARIN SOD (PORCINE) 5000UNITS/ML 1ML VIAL/SYRINGE SC SCH ×2 (07:37→21:31)
[2023-01-09 18:08] VITALS: BP 164/88; TEMP 98.1; O2SAT 94
[2023-01-09] MEDS: NORCO, ANEXSIA 5/325MG TABLET (HYDROcodone/ACETAMINOPHEN) PO PRN (18:24)
[2023-01-09 20:00] VITALS: O2SAT 93
[2023-01-09 20:30] VITALS: BP 114/61; TEMP 98.4; O2SAT 92
[2023-01-09] MEDS: TERAZOSIN 5MG CAPSULE PO SCH (23:40)
[2023-01-10] VITALS: O2SAT 92
[2023-01-10 04:00] VITALS: O2SAT 97
[2023-01-10 05:15] VITALS: BP 111/55; TEMP 97.7; O2SAT 94
[2023-01-10 06:13] LABS: ALBUMIN 2.9 G/DL (3.2-5.2); ALKALINE PHOSPHATASE 72 U/L (46-116); ALT/SGPT 42 U/L (7.0-40); AST/SGOT 59 U/L (<34); BILIRUBIN,TOTAL 0.4 MG/DL (0.3-1.2); BLOOD UREA NITROGEN 26 MG/DL (9-23); CALCIUM LEVEL 8.1 MG/DL (8.3-10.6); CARBON DIOXIDE LEVEL 26 MMOL/L (20-31); CHLORIDE LEVEL 105 MMOL/L (98-107); CREATININE FOR GFR 1.01 MG/DL (0.70-1.30); GLOMERULAR FILTRATION RATE > 60.0 (>35); GLUCOSE, FASTING 113 MG/DL (74-106); POTASSIUM SERUM 3.2 MMOL/L (3.5-5.1); SODIUM LEVEL 141 MMOL/L (136-145); TOTAL PROTEIN 5.4 G/DL (5.7-8.2)
[2023-01-10] MEDS ORDERED: POTASSIUM CHLORIDE 10MEQ SR TABLET PO ONE (09:00)
[2023-01-10] MEDS: HEPARIN SOD (PORCINE) 5000UNITS/ML 1ML VIAL/SYRINGE SC SCH (10:25)
[2023-01-10] MEDS: FUROSEMIDE 20 MG TAB PO SCH (10:26)
[2023-01-10] MEDS: MULTIVITAMINS/MINERALS THERAP 1 TAB PO SCH (10:26)
[2023-01-10] MEDS: ASPIRIN 81MG ENTERIC TABLET PO SCH (10:26)
[2023-01-10] MEDS: LOSARTAN 50MG TABLET PO SCH (10:27)
[2023-01-10] MEDS: CARVedilol 6.25 MG TAB PO SCH ×2 (10:27→20:28)
[2023-01-10] MEDS: TERAZOSIN 5MG CAPSULE PO SCH (20:29)
[2023-01-11 06:00] VITALS: BP 132/68; TEMP 97.7; O2SAT 96
[2023-01-11] MEDS: ASPIRIN 81MG ENTERIC TABLET PO SCH (10:58)
[2023-01-11] MEDS: MULTIVITAMINS/MINERALS THERAP 1 TAB PO SCH (10:58)
[2023-01-11] MEDS: ENOXAPARIN 40MG/0.4ML SYRINGE (J1650 PER 10MG) SC SCH (10:58)
[2023-01-11] MEDS: FUROSEMIDE 20 MG TAB PO SCH (11:00)
[2023-01-11] MEDS: LOSARTAN 50MG TABLET PO SCH (11:01)
[2023-01-11] MEDS: CARVedilol 6.25 MG TAB PO SCH ×2 (11:02→20:34)
[2023-01-11] MEDS: TERAZOSIN 5MG CAPSULE PO SCH (20:34)
[2023-01-12 04:50] VITALS: BP 103/56; TEMP 98.1; O2SAT 95
[2023-01-12] MEDS: CARVedilol 6.25 MG TAB PO SCH ×2 (10:07→20:10)
[2023-01-12] MEDS: MULTIVITAMINS/MINERALS THERAP 1 TAB PO SCH (10:08)
[2023-01-12] MEDS: FUROSEMIDE 20 MG TAB PO SCH (10:08)
[2023-01-12] MEDS: ASPIRIN 81MG ENTERIC TABLET PO SCH (10:08)
[2023-01-12] MEDS: ENOXAPARIN 40MG/0.4ML SYRINGE (J1650 PER 10MG) SC SCH (10:08)
[2023-01-12] MEDS: LOSARTAN 50MG TABLET PO SCH (10:08)
[2023-01-12] MEDS: TERAZOSIN 5MG CAPSULE PO SCH (20:09)
[2023-01-13 04:40] VITALS: BP 135/74; TEMP 98.1; O2SAT 95
[2023-01-13] MEDS: ASPIRIN 81MG ENTERIC TABLET PO SCH (08:18)
[2023-01-13] MEDS: ENOXAPARIN 40MG/0.4ML SYRINGE (J1650 PER 10MG) SC SCH (08:18)
[2023-01-13] MEDS: MULTIVITAMINS/MINERALS THERAP 1 TAB PO SCH (08:19)
[2023-01-13] MEDS: LOSARTAN 50MG TABLET PO SCH (08:19)
[2023-01-13] MEDS: CARVedilol 6.25 MG TAB PO SCH ×2 (08:19→21:26)
[2023-01-13] MEDS: FUROSEMIDE 20 MG TAB PO SCH (08:19)
[2023-01-13 21:03] VITALS: BP 156/98
[2023-01-13] MEDS: TERAZOSIN 5MG CAPSULE PO SCH (21:26)
[2023-01-14 06:40] VITALS: BP 118/70; TEMP 98.1; O2SAT 94
[2023-01-14 08:11] LABS: BASO % 0.4 % (0.0-1.0); EOS # 0.4 10^3/uL (0.0-0.5); EOS % 7.8 % (0.0-3.0); HEMATOCRIT 38.7 % (42.0-52.0); LYMPH # 1.6 10^3/uL (1.5-5.0); LYMPH % 29.1 % (24.0-44.0); MEAN CORPUSCULAR HEMOGLOBIN 29.7 pg (27.0-33.0); MEAN CORPUSCULAR HGB CONC 33.6 g/dl (32.0-36.5); MEAN CORPUSCULAR VOLUME 88.4 fl (80.0-96.0); MONO # 0.7 10^3/uL (0.0-0.8); MONO % 13.3 % (2.0-8.0); NEUTROPHILS # 2.7 10^3/uL (1.5-8.5); NEUTROPHILS % 49.2 % (36.0-66.0); PLATELET COUNT, AUTOMATED 176 10^3/uL (150-450); RED BLOOD COUNT 4.38 10^6/uL (4.30-6.10); WHITE BLOOD COUNT 5.5 10^3/uL (4.0-10.0)
[2023-01-14 08:35] LABS: BLOOD UREA NITROGEN 17 MG/DL (9-23); CALCIUM LEVEL 8.1 MG/DL (8.3-10.6); CARBON DIOXIDE LEVEL 30 MMOL/L (20-31); CHLORIDE LEVEL 107 MMOL/L (98-107); CREATININE FOR GFR 0.71 MG/DL (0.70-1.30); GLOMERULAR FILTRATION RATE > 60.0 (>35); GLUCOSE, FASTING 101 MG/DL (74-106); POTASSIUM SERUM 3.6 MMOL/L (3.5-5.1); SODIUM LEVEL 142 MMOL/L (136-145)
[2023-01-14] MEDS: MULTIVITAMINS/MINERALS THERAP 1 TAB PO SCH (09:43)
[2023-01-14] MEDS: ASPIRIN 81MG ENTERIC TABLET PO SCH (09:43)
[2023-01-14] MEDS: FUROSEMIDE 20 MG TAB PO SCH (09:43)
[2023-01-14] MEDS: ENOXAPARIN 40MG/0.4ML SYRINGE (J1650 PER 10MG) SC SCH (09:44)
[2023-01-14] MEDS: CARVedilol 6.25 MG TAB PO SCH ×2 (09:44→20:19)
[2023-01-14] MEDS: LOSARTAN 50MG TABLET PO SCH (09:44)
[2023-01-14] MEDS: LevoFLOXacin 250 MG TABLET PO SCH (17:12)
[2023-01-14 20:17] VITALS: BP 140/75
[2023-01-14] MEDS: TERAZOSIN 5MG CAPSULE PO SCH (20:19)
[2023-01-15] MEDS: LevoFLOXacin 250 MG TABLET PO SCH (06:17)
[2023-01-15 06:24] VITALS: BP 170/90; TEMP 98.1; O2SAT 95
[2023-01-15] MEDS: FUROSEMIDE 20 MG TAB PO SCH (09:37)
[2023-01-15] MEDS: CARVedilol 6.25 MG TAB PO SCH ×2 (09:37→21:16)
[2023-01-15] MEDS: MULTIVITAMINS/MINERALS THERAP 1 TAB PO SCH (09:37)
[2023-01-15] MEDS: ENOXAPARIN 40MG/0.4ML SYRINGE (J1650 PER 10MG) SC SCH (09:38)
[2023-01-15] MEDS: LOSARTAN 50MG TABLET PO SCH (09:38)
[2023-01-15] MEDS: ASPIRIN 81MG ENTERIC TABLET PO SCH (09:38)
[2023-01-15] MEDS: NORCO, ANEXSIA 5/325MG TABLET (HYDROcodone/ACETAMINOPHEN) PO PRN ×2 (09:39→18:01)
[2023-01-15 14:13] VITALS: BP 120/80
[2023-01-15] MEDS: TERAZOSIN 5MG CAPSULE PO SCH (21:17)
[2023-01-15 21:18] VITALS: BP 154/91; TEMP 98.2; O2SAT 94
[2023-01-16] MEDS: NORCO, ANEXSIA 5/325MG TABLET (HYDROcodone/ACETAMINOPHEN) PO PRN ×3 (01:11→20:10)
[2023-01-16 04:50] VITALS: BP 127/74; TEMP 98.1; O2SAT 93
[2023-01-16] MEDS: LevoFLOXacin 250 MG TABLET PO SCH (06:18)
[2023-01-16] MEDS ORDERED: CYCLOBENZAPRINE 5MG TABLET PO ONE (09:00)
[2023-01-16] MEDS: ASPIRIN 81MG ENTERIC TABLET PO SCH (09:36)
[2023-01-16] MEDS: LOSARTAN 50MG TABLET PO SCH (09:37)
[2023-01-16] MEDS: FUROSEMIDE 20 MG TAB PO SCH (09:37)
[2023-01-16] MEDS: CARVedilol 6.25 MG TAB PO SCH ×2 (09:37→20:10)
[2023-01-16] MEDS: MULTIVITAMINS/MINERALS THERAP 1 TAB PO SCH (09:38)
[2023-01-16] MEDS: ENOXAPARIN 40MG/0.4ML SYRINGE (J1650 PER 10MG) SC SCH (09:38)
[2023-01-16 19:40] VITALS: BP 127/77
[2023-01-16] MEDS: TERAZOSIN 5MG CAPSULE PO SCH (20:11)
[2023-01-17] MEDS: NORCO, ANEXSIA 5/325MG TABLET (HYDROcodone/ACETAMINOPHEN) PO PRN ×2 (03:44→20:59)
[2023-01-17 04:50] VITALS: BP 118/61; TEMP 97.9; O2SAT 95
[2023-01-17] MEDS: LevoFLOXacin 250 MG TABLET PO SCH (05:48)
[2023-01-17] MEDS: MULTIVITAMINS/MINERALS THERAP 1 TAB PO SCH (08:36)
[2023-01-17] MEDS: ENOXAPARIN 40MG/0.4ML SYRINGE (J1650 PER 10MG) SC SCH ×2 (08:36→08:41)
[2023-01-17] MEDS: ASPIRIN 81MG ENTERIC TABLET PO SCH (08:36)
[2023-01-17] MEDS: LOSARTAN 50MG TABLET PO SCH (08:37)
[2023-01-17] MEDS: FUROSEMIDE 20 MG TAB PO SCH (08:37)
[2023-01-17] MEDS: CARVedilol 6.25 MG TAB PO SCH ×2 (08:37→21:00)
[2023-01-17] MEDS: TERAZOSIN 5MG CAPSULE PO SCH (21:00)
[2023-01-18 05:00] VITALS: BP 114/67; TEMP 98.6; O2SAT 91
[2023-01-18] MEDS: LevoFLOXacin 250 MG TABLET PO SCH (05:43)
[2023-01-18] MEDS: ENOXAPARIN 40MG/0.4ML SYRINGE (J1650 PER 10MG) SC SCH ×2 (09:00→11:01)
[2023-01-18] MEDS: MULTIVITAMINS/MINERALS THERAP 1 TAB PO SCH (10:58)
[2023-01-18] MEDS: ASPIRIN 81MG ENTERIC TABLET PO SCH (10:58)
[2023-01-18] MEDS: CARVedilol 6.25 MG TAB PO SCH ×2 (10:59→20:13)
[2023-01-18] MEDS: FUROSEMIDE 20 MG TAB PO SCH (11:00)
[2023-01-18] MEDS: LOSARTAN 50MG TABLET PO SCH (11:00)
[2023-01-18] MEDS ORDERED: ACETAMINOPHEN 325 MG TAB PO PRN (12:45)
[2023-01-18] MEDS: TERAZOSIN 5MG CAPSULE PO SCH (20:13)
[2023-01-19] MEDS: LevoFLOXacin 250 MG TABLET PO SCH (05:35)
[2023-01-19 05:37] VITALS: BP 131/84; TEMP 98.6; O2SAT 94
[2023-01-19] MEDS: ENOXAPARIN 40MG/0.4ML SYRINGE (J1650 PER 10MG) SC SCH ×2 (09:00→10:15)
[2023-01-19 10:14] VITALS: BP 149/73
[2023-01-19] MEDS: ASPIRIN 81MG ENTERIC TABLET PO SCH (10:14)
[2023-01-19] MEDS: LOSARTAN 50MG TABLET PO SCH (10:14)
[2023-01-19] MEDS: MULTIVITAMINS/MINERALS THERAP 1 TAB PO SCH (10:15)
[2023-01-19] MEDS: FUROSEMIDE 20 MG TAB PO SCH (10:15)
[2023-01-19] MEDS: CARVedilol 6.25 MG TAB PO SCH (10:15)
== END 2023-01-19 12:45 ==
LOC: M ED 23:27 → INTOOBSV 01-09 04:20 → M ED INP 01-09 04:20 → ENRESERV 01-09 16:12 → M MSPAV 01-09 18:09
PROVIDERS: ADMIT Internal Medicine; ATTEND Student in an Organized Health Care Education/Training Program
DX: S43.422A Sprain of left rotator cuff capsule, initial encounter (principal); V00.811A Fall from moving wheelchair (powered), initial encounter; Y92.410 Unspecified street and highway as the place of occurrence of the external cause; M79.622 Pain in left upper arm; R54 Age-related physical debility; U07.1 COVID-19; R74.01 Elevation of levels of liver transaminase levels; E87.6 Hypokalemia; N39.0 Urinary tract infection, site not specified; N40.0 Benign prostatic hyperplasia without lower urinary tract symptoms; B91 Sequelae of poliomyelitis; R53.1 Weakness; M19.012 Primary osteoarthritis, left shoulder; F43.20 Adjustment disorder, unspecified; I10 Essential (primary) hypertension; M48.00 Spinal stenosis, site unspecified; Z91.81 History of falling; Z79.899 Other long term (current) drug therapy; Z79.82 Long term (current) use of aspirin; Z88.8 Allergy status to other drugs, medicaments and biological substances
CPT/HCPCS: 36415; 71045; 73030; 73200; 80048; 80053; 81001; 85025; 87086; 87426; 87635; 96372; 97161; 97165; 97530; 97535; 99285; G0378; J1650

== ENCOUNTER 2023-04-01 09:03 | Inpatient (IN) | payer MEDICARE ==
[~2023-04-01] VITALS: Ht 167.6 cm; Wt 86.7 kg
[~2023-04-01 09:03] MED LIST changes: +APAP325T4 PO; +LOSA100T46 PO
[2023-04-01] MEDS ORDERED: LIDOCAINE 2% 5ML JELLY UROJET TOP ONE ×2 (09:30→10:40)
[2023-04-01 10:23] LABS: BASO % 0.4 % (0.0-1.0); EOS # 0.1 10^3/uL (0.0-0.5); EOS % 1.5 % (0.0-3.0); HEMATOCRIT 36.1 % (42.0-52.0); HEMOGLOBIN 12.3 g/dl (13.5-17.5); LYMPH # 0.9 10^3/uL (1.5-5.0); MEAN CORPUSCULAR HEMOGLOBIN 29.6 pg (27.0-33.0); MEAN CORPUSCULAR HGB CONC 34.1 g/dl (32.0-36.5); MEAN CORPUSCULAR VOLUME 86.8 fl (80.0-96.0); MONO # 0.8 10^3/uL (0.0-0.8); NEUTROPHILS # 6.2 10^3/uL (1.5-8.5); NEUTROPHILS % 76.9 % (36.0-66.0); PLATELET COUNT, AUTOMATED 198 10^3/uL (150-450); RED BLOOD COUNT 4.16 10^6/uL (4.30-6.10); WHITE BLOOD COUNT 8.1 10^3/uL (4.0-10.0)
[2023-04-01 10:41] LABS: CK-MB VALUE MASS 19.2 NG/ML (<3.6)
[2023-04-01 10:43] LABS: ALBUMIN 3.1 G/DL (3.2-5.2); BILIRUBIN,DIRECT 0.2 MG/DL (<0.4); BILIRUBIN,TOTAL 0.5 MG/DL (0.3-1.2); CALCIUM LEVEL 8.2 MG/DL (8.3-10.6); CREATININE FOR GFR 6.27 MG/DL (0.70-1.30); GLOMERULAR FILTRATION RATE 9.1 (>35); POTASSIUM SERUM 5.8 MMOL/L (3.5-5.1); TOTAL PROTEIN 6.1 G/DL (5.7-8.2)
[2023-04-01 10:45] LABS: THYROID STIMULATING HORMONE 0.201 uIU/ML (0.55-4.78)
[2023-04-01 10:50] LABS: MB/CK RELATIVE INDEX 2.47 (< OR =4)
[2023-04-01 10:56] LABS: RSV AMPLIFICATION NEGATIVE (NEGATIVE)
[2023-04-01] MEDS ORDERED: NS 1,000 ML IV ONE (11:15)
[2023-04-01 11:54] LABS: CK-MB VALUE MASS 18.6 NG/ML (<3.6)
[2023-04-01 11:55] LABS: MB/CK RELATIVE INDEX 2.32 (< OR =4)
[2023-04-01] MEDS ORDERED: MOM 30ML SUSPENSION UDC PO PRN (13:10)
[2023-04-01] MEDS ORDERED: MAALOX 30 ML SUSP *UDC PO PRN (13:10)
[2023-04-01] MEDS ORDERED: MED REC IN PROGRESS XX SCH (13:20)
[2023-04-01 13:58] LABS: PROCALCITONIN 0.22 ng/ml
[2023-04-01] MEDS ORDERED: MED REC CURRENTLY UNOBTAINABLE XX SCH (14:10)
[2023-04-01] MEDS ORDERED: HOME MED LIST COMPLETE! XX SCH (16:00)
[2023-04-01 16:07] VITALS: BP 92/54; TEMP 97.2; O2SAT 93
[2023-04-01] MEDS ORDERED: NS 500 ML IV ONE (16:40)
[2023-04-01 17:38] LABS: VENOUS BASE EXCESS -8.8 (-2.0-2.0); VENOUS HCO3 17.1 MMOL/L (23.0-27.0); VENOUS PARTIAL PRESSURE CO2 36.7 mmHg (38.0-50.0); VENOUS PH 7.286 UNITS (7.330-7.430); VENOUS STANDARD HCO3 17.3 MMOL/L; VENOUS TOTAL CO2 18.2 MMOL/L (24.0-28.0)
[2023-04-01] MEDS: cefTRIAXone SOD 1 GM in D5W MINI-BAG PLUS 50 ML IV SCH (18:01)
[2023-04-01] MEDS: SODIUM BICARBONATE 75 MEQ in D5W/0.45% SODIUM CHLORIDE 1,000 ML IV SCH (18:02)
[2023-04-01 18:27] LABS: FREE T4 1.2 NG/DL (0.89-1.76); THYROID STIMULATING HORMONE 0.134 uIU/ML (0.55-4.78)
[2023-04-01 18:28] LABS: CALCIUM LEVEL 8.2 MG/DL (8.3-10.6); CREATININE FOR GFR 5.87 MG/DL (0.70-1.30); GLOMERULAR FILTRATION RATE 9.8 (>35); MAGNESIUM LEVEL 1.8 MG/DL (1.8-2.4); POTASSIUM SERUM 4.5 MMOL/L (3.5-5.1)
[2023-04-01 18:48] LABS: CREATININE,RANDOM URINE 71.3 MG/DL
[2023-04-01 20:00] VITALS: BP 115/52; TEMP 96.8; O2SAT 94
[2023-04-01] MEDS ORDERED: TERAZOSIN 5MG CAPSULE PO SCH (21:00)
[2023-04-01] MEDS ORDERED: CARVedilol 6.25 MG TAB PO SCH (21:00)
[2023-04-01] MEDS: HEPARIN SOD (PORCINE) 5000UNITS/ML 1ML VIAL/SYRINGE SC SCH (21:15)
[2023-04-01] MEDS: DOCUSATE SODIUM 100MG CAPSULE PO SCH (21:15)
[2023-04-01 23:57] VITALS: BP 109/96; TEMP 97.2; O2SAT 99
[2023-04-02 03:56] VITALS: BP 113/56; TEMP 97; O2SAT 95
[2023-04-02 05:20] LABS: BASO % 0.5 % (0.0-1.0); EOS # 0.2 10^3/uL (0.0-0.5); EOS % 3.1 % (0.0-3.0); HEMATOCRIT 34.6 % (42.0-52.0); HEMOGLOBIN 11.6 g/dl (13.5-17.5); LYMPH # 0.9 10^3/uL (1.5-5.0); MEAN CORPUSCULAR HEMOGLOBIN 28.9 pg (27.0-33.0); MEAN CORPUSCULAR HGB CONC 33.5 g/dl (32.0-36.5); MEAN CORPUSCULAR VOLUME 86.3 fl (80.0-96.0); MONO % 13.3 % (2.0-8.0); NEUTROPHILS # 5.5 10^3/uL (1.5-8.5); NEUTROPHILS % 70.7 % (36.0-66.0); PLATELET COUNT, AUTOMATED 188 10^3/uL (150-450); RED BLOOD COUNT 4.01 10^6/uL (4.30-6.10); WHITE BLOOD COUNT 7.8 10^3/uL (4.0-10.0)
[2023-04-02 05:53] LABS: ALBUMIN 2.6 G/DL (3.2-5.2); BILIRUBIN,TOTAL 0.4 MG/DL (0.3-1.2); CALCIUM LEVEL 7.7 MG/DL (8.3-10.6); CREATININE FOR GFR 4.81 MG/DL (0.70-1.30); GLOMERULAR FILTRATION RATE 12.4 (>35); MAGNESIUM LEVEL 1.5 MG/DL (1.8-2.4); POTASSIUM SERUM 3.9 MMOL/L (3.5-5.1); TOTAL PROTEIN 5.3 G/DL (5.7-8.2)
[2023-04-02] MEDS: SODIUM BICARBONATE 75 MEQ in D5W/0.45% SODIUM CHLORIDE 1,000 ML IV SCH (06:12)
[2023-04-02] MEDS: HEPARIN SOD (PORCINE) 5000UNITS/ML 1ML VIAL/SYRINGE SC SCH ×3 (06:12→22:14)
[2023-04-02] MEDS: NS 1,000 ML IV SCH ×2 (07:02→21:33)
[2023-04-02] MEDS: MAG SULF 1GM/100ML (MAG RUN) 1 GM in IV 1 EA IV SCH ×2 (07:02→10:16)
[2023-04-02 07:59] VITALS: BP 108/52; TEMP 97.4; O2SAT 93
[2023-04-02] MEDS: DOCUSATE SODIUM 100MG CAPSULE PO SCH ×2 (10:15→21:00)
[2023-04-02 11:18] VITALS: BP 127/64; TEMP 96.6; O2SAT 95
[2023-04-02] MEDS: ACETAMINOPHEN TAB 650MG DOSE (2X325MG) PO PRN ×2 (12:36→22:10)
[2023-04-02 15:03] VITALS: BP 102/52; TEMP 97.9; O2SAT 90
[2023-04-02] MEDS: cefTRIAXone SOD 1 GM in D5W MINI-BAG PLUS 50 ML IV SCH (15:20)
[2023-04-02 19:44] VITALS: BP 107/52; TEMP 99.3; O2SAT 94
[2023-04-03] VITALS: BP 114/53; TEMP 98.5; O2SAT 93
[2023-04-03] MEDS: HEPARIN SOD (PORCINE) 5000UNITS/ML 1ML VIAL/SYRINGE SC SCH ×3 (05:36→21:04)
[2023-04-03 07:18] VITALS: BP 122/56; TEMP 96.9; O2SAT 96
[2023-04-03 08:39] LABS: BASO # 0.1 10^3/uL (0.0-0.2); BASO % 0.7 % (0.0-1.0); EOS # 0.4 10^3/uL (0.0-0.5); EOS % 5.6 % (0.0-3.0); HEMOGLOBIN 11.9 g/dl (13.5-17.5); LYMPH # 1.4 10^3/uL (1.5-5.0); LYMPH % 19.9 % (24.0-44.0); MEAN CORPUSCULAR HGB CONC 33.1 g/dl (32.0-36.5); MEAN CORPUSCULAR VOLUME 87.8 fl (80.0-96.0); MONO # 0.9 10^3/uL (0.0-0.8); NEUTROPHILS # 4.3 10^3/uL (1.5-8.5); NEUTROPHILS % 60.5 % (36.0-66.0); PLATELET COUNT, AUTOMATED 181 10^3/uL (150-450); WHITE BLOOD COUNT 7.1 10^3/uL (4.0-10.0)
[2023-04-03] MEDS: DOCUSATE SODIUM 100MG CAPSULE PO SCH ×2 (08:50→20:57)
[2023-04-03] MEDS: NS 1,000 ML IV SCH (08:55)
[2023-04-03] MEDS ORDERED: MAG SULF 1GM/100ML (MAG RUN) 1 GM in IV 1 EA IV SCH (09:00)
[2023-04-03 09:02] LABS: ALBUMIN 2.6 G/DL (3.2-5.2); BILIRUBIN,TOTAL 0.3 MG/DL (0.3-1.2); CALCIUM LEVEL 7.6 MG/DL (8.3-10.6); CREATININE FOR GFR 2.87 MG/DL (0.70-1.30); GLOMERULAR FILTRATION RATE 22.4 (>35); MAGNESIUM LEVEL 1.6 MG/DL (1.8-2.4); POTASSIUM SERUM 3.7 MMOL/L (3.5-5.1); TOTAL PROTEIN 5.6 G/DL (5.7-8.2)
[2023-04-03] MEDS ORDERED: D5W/0.45% SODIUM CHLORIDE 1,000 ML IV SCH (10:00)
[2023-04-03] MEDS: MAG SULF 1GM/100ML (MAG RUN) 1 GM in IV 1 EA IV SCH ×3 (10:01→12:10)
[2023-04-03 11:39] VITALS: BP 114/59; TEMP 96.5; O2SAT 97
[2023-04-03] MEDS: cefTRIAXone SOD 1 GM in D5W MINI-BAG PLUS 50 ML IV SCH (16:02)
[2023-04-03 20:30] VITALS: BP 139/58; TEMP 98; O2SAT 94
[2023-04-03] MEDS: ACETAMINOPHEN TAB 650MG DOSE (2X325MG) PO PRN (21:32)
[2023-04-04 05:00] VITALS: BP 145/66; TEMP 97.4; O2SAT 97
[2023-04-04] MEDS: HEPARIN SOD (PORCINE) 5000UNITS/ML 1ML VIAL/SYRINGE SC SCH ×3 (05:39→20:51)
[2023-04-04 06:43] LABS: BASO # 0.1 10^3/uL (0.0-0.2); BASO % 0.8 % (0.0-1.0); EOS # 0.7 10^3/uL (0.0-0.5); EOS % 9.3 % (0.0-3.0); HEMOGLOBIN 12.3 g/dl (13.5-17.5); LYMPH # 1.7 10^3/uL (1.5-5.0); LYMPH % 24.5 % (24.0-44.0); MEAN CORPUSCULAR HEMOGLOBIN 29.1 pg (27.0-33.0); MEAN CORPUSCULAR HGB CONC 33.2 g/dl (32.0-36.5); MEAN CORPUSCULAR VOLUME 87.7 fl (80.0-96.0); MONO # 0.8 10^3/uL (0.0-0.8); NEUTROPHILS # 3.9 10^3/uL (1.5-8.5); NEUTROPHILS % 54.3 % (36.0-66.0); PLATELET COUNT, AUTOMATED 195 10^3/uL (150-450); RED BLOOD COUNT 4.22 10^6/uL (4.30-6.10); WHITE BLOOD COUNT 7.1 10^3/uL (4.0-10.0)
[2023-04-04 07:08] LABS: ALBUMIN 2.6 G/DL (3.2-5.2); BILIRUBIN,TOTAL 0.3 MG/DL (0.3-1.2); CALCIUM LEVEL 8.3 MG/DL (8.3-10.6); CREATININE FOR GFR 1.95 MG/DL (0.70-1.30); MAGNESIUM LEVEL 1.7 MG/DL (1.8-2.4); POTASSIUM SERUM 3.4 MMOL/L (3.5-5.1); TOTAL PROTEIN 5.7 G/DL (5.7-8.2)
[2023-04-04 07:50] VITALS: BP 90/53; TEMP 98.2; O2SAT 95
[2023-04-04 07:57] VITALS: BP 112/60
[2023-04-04] MEDS: DOCUSATE SODIUM 100MG CAPSULE PO SCH ×2 (07:57→20:54)
[2023-04-04] MEDS: MAG SULF 1GM/100ML (MAG RUN) 1 GM in IV 1 EA IV SCH (08:40)
[2023-04-04] MEDS ORDERED: POTASSIUM CHLORIDE 10MEQ SR TABLET PO ONE (09:00)
[2023-04-04] MEDS ORDERED: D5W 1,000 ML IV SCH (11:30)
[2023-04-04 16:00] VITALS: BP 109/50; TEMP 98.4; O2SAT 96
[2023-04-04] MEDS: CEFDINIR 300 MG CAP (OMNICEF) PO SCH ×2 (16:12→20:54)
[2023-04-04 20:00] VITALS: BP 140/65; TEMP 98; O2SAT 95
[2023-04-04] MEDS: TERAZOSIN 5MG CAPSULE PO SCH (20:54)
[2023-04-05 04:50] VITALS: BP 126/57; TEMP 98.3; O2SAT 94
[2023-04-05] MEDS: HEPARIN SOD (PORCINE) 5000UNITS/ML 1ML VIAL/SYRINGE SC SCH ×3 (05:21→20:37)
[2023-04-05 05:44] LABS: BASO # 0.1 10^3/uL (0.0-0.2); BASO % 0.8 % (0.0-1.0); EOS # 0.8 10^3/uL (0.0-0.5); EOS % 10.1 % (0.0-3.0); HEMATOCRIT 35.1 % (42.0-52.0); HEMOGLOBIN 11.3 g/dl (13.5-17.5); LYMPH # 1.7 10^3/uL (1.5-5.0); LYMPH % 22.7 % (24.0-44.0); MEAN CORPUSCULAR HEMOGLOBIN 28.6 pg (27.0-33.0); MEAN CORPUSCULAR HGB CONC 32.2 g/dl (32.0-36.5); MEAN CORPUSCULAR VOLUME 88.9 fl (80.0-96.0); MONO # 0.8 10^3/uL (0.0-0.8); MONO % 11.1 % (2.0-8.0); NEUTROPHILS # 4.1 10^3/uL (1.5-8.5); PLATELET COUNT, AUTOMATED 191 10^3/uL (150-450); RED BLOOD COUNT 3.95 10^6/uL (4.30-6.10); WHITE BLOOD COUNT 7.5 10^3/uL (4.0-10.0)
[2023-04-05 05:52] LABS: ALBUMIN 2.5 G/DL (3.2-5.2); BILIRUBIN,TOTAL 0.3 MG/DL (0.3-1.2); CALCIUM LEVEL 7.8 MG/DL (8.3-10.6); CREATININE FOR GFR 1.59 MG/DL (0.70-1.30); GLOMERULAR FILTRATION RATE 44.3 (>35); MAGNESIUM LEVEL 1.7 MG/DL (1.8-2.4); POTASSIUM SERUM 3.6 MMOL/L (3.5-5.1); TOTAL PROTEIN 5.4 G/DL (5.7-8.2)
[2023-04-05] MEDS ORDERED: POTASSIUM CHLORIDE 10MEQ SR TABLET PO ONE (06:10)
[2023-04-05 07:35] VITALS: BP 127/75; TEMP 98.8; O2SAT 95
[2023-04-05] MEDS: MAG SULF 1GM/100ML (MAG RUN) 1 GM in IV 1 EA IV SCH ×2 (09:00→09:06)
[2023-04-05] MEDS: DOCUSATE SODIUM 100MG CAPSULE PO SCH ×2 (09:00→20:32)
[2023-04-05] MEDS: CEFDINIR 300 MG CAP (OMNICEF) PO SCH ×2 (09:06→20:37)
[2023-04-05 15:32] VITALS: BP 146/79; TEMP 98.1; O2SAT 96
[2023-04-05 20:36] VITALS: BP 140/60; TEMP 98.9; O2SAT 94
[2023-04-05] MEDS: ACETAMINOPHEN TAB 650MG DOSE (2X325MG) PO PRN (20:37)
[2023-04-05] MEDS: TERAZOSIN 5MG CAPSULE PO SCH (20:37)
[2023-04-06 03:21] VITALS: BP 142/67; TEMP 98.7; O2SAT 93
[2023-04-06 05:14] LABS: BASO # 0.1 10^3/uL (0.0-0.2); BASO % 1.1 % (0.0-1.0); EOS # 0.8 10^3/uL (0.0-0.5); EOS % 12.5 % (0.0-3.0); HEMATOCRIT 35.6 % (42.0-52.0); HEMOGLOBIN 11.8 g/dl (13.5-17.5); LYMPH # 1.6 10^3/uL (1.5-5.0); LYMPH % 23.9 % (24.0-44.0); MEAN CORPUSCULAR HEMOGLOBIN 29.2 pg (27.0-33.0); MEAN CORPUSCULAR HGB CONC 33.1 g/dl (32.0-36.5); MEAN CORPUSCULAR VOLUME 88.1 fl (80.0-96.0); MONO # 0.6 10^3/uL (0.0-0.8); MONO % 9.2 % (2.0-8.0); NEUTROPHILS # 3.5 10^3/uL (1.5-8.5); PLATELET COUNT, AUTOMATED 189 10^3/uL (150-450); RED BLOOD COUNT 4.04 10^6/uL (4.30-6.10); WHITE BLOOD COUNT 6.6 10^3/uL (4.0-10.0)
[2023-04-06] MEDS: HEPARIN SOD (PORCINE) 5000UNITS/ML 1ML VIAL/SYRINGE SC SCH ×3 (05:27→20:50)
[2023-04-06 05:38] LABS: ALBUMIN 2.5 G/DL (3.2-5.2); BILIRUBIN,TOTAL 0.3 MG/DL (0.3-1.2); CREATININE FOR GFR 1.35 MG/DL (0.70-1.30); GLOMERULAR FILTRATION RATE 53.5 (>35); MAGNESIUM LEVEL 1.7 MG/DL (1.8-2.4); POTASSIUM SERUM 4.1 MMOL/L (3.5-5.1); TOTAL PROTEIN 5.5 G/DL (5.7-8.2)
[2023-04-06 08:00] VITALS: BP 125/67; TEMP 98.4; O2SAT 94
[2023-04-06] MEDS ORDERED: D5W 500 ML IV SCH (08:00)
[2023-04-06] MEDS: MAGNESIUM OXIDE 400MG TAB (MAG-OX) PO SCH ×2 (08:32→20:49)
[2023-04-06] MEDS: DOCUSATE SODIUM 100MG CAPSULE PO SCH ×2 (08:32→20:49)
[2023-04-06] MEDS: MAG SULF 1GM/100ML (MAG RUN) 1 GM in IV 1 EA IV SCH ×2 (08:34→09:20)
[2023-04-06 12:00] VITALS: BP 122/60; TEMP 97.4; O2SAT 97
[2023-04-06 15:21] LABS: CALCIUM LEVEL 8.3 MG/DL (8.3-10.6); CREATININE FOR GFR 1.28 MG/DL (0.70-1.30); GLOMERULAR FILTRATION RATE 56.9 (>35); POTASSIUM SERUM 3.9 MMOL/L (3.5-5.1)
[2023-04-06 19:21] VITALS: BP 123/58; TEMP 97.6; O2SAT 98
[2023-04-06] MEDS ORDERED: diphenhydrAMINE 25MG CAP PO ONE (19:35)
[2023-04-06] MEDS: ACETAMINOPHEN TAB 650MG DOSE (2X325MG) PO PRN (20:49)
[2023-04-06] MEDS: TERAZOSIN 5MG CAPSULE PO SCH (20:49)
[2023-04-06] MEDS: CALAMINE LOTION 177 ML BTL TOP PRN (20:50)
[2023-04-06] MEDS: HYDROCORTISONE 2.5% 20GM OINTMENT TOP SCH (23:20)
[2023-04-06 23:45] VITALS: BP 152/78; TEMP 98.2; O2SAT 93
[2023-04-07] MEDS: HEPARIN SOD (PORCINE) 5000UNITS/ML 1ML VIAL/SYRINGE SC SCH ×5 (05:28→22:00)
[2023-04-07 05:30] VITALS: BP 150/75; TEMP 97.9; O2SAT 96
[2023-04-07] MEDS: DOCUSATE SODIUM 100MG CAPSULE PO SCH ×4 (09:00→21:22)
[2023-04-07] MEDS: MAGNESIUM OXIDE 400MG TAB (MAG-OX) PO SCH ×4 (09:07→21:23)
[2023-04-07] MEDS: HYDROCORTISONE 2.5% 20GM OINTMENT TOP SCH ×2 (09:26→10:29)
[2023-04-07] MEDS: TERAZOSIN 5MG CAPSULE PO SCH (21:16)
[2023-04-08] MEDS: HEPARIN SOD (PORCINE) 5000UNITS/ML 1ML VIAL/SYRINGE SC SCH ×3 (05:07→21:31)
[2023-04-08 06:00] VITALS: BP 146/78; TEMP 97.7; O2SAT 95
[2023-04-08] MEDS: DOCUSATE SODIUM 100MG CAPSULE PO SCH ×2 (08:41→21:00)
[2023-04-08] MEDS: MAGNESIUM OXIDE 400MG TAB (MAG-OX) PO SCH ×2 (08:42→21:27)
[2023-04-08] MEDS: HYDROCORTISONE 2.5% 20GM OINTMENT TOP SCH ×2 (08:43→21:31)
[2023-04-08] MEDS: TERAZOSIN 5MG CAPSULE PO SCH ×2 (21:29→22:11)
[2023-04-08 21:40] VITALS: BP 110/66
[2023-04-09] MEDS: CALAMINE LOTION 177 ML BTL TOP PRN (04:24)
[2023-04-09] MEDS: HEPARIN SOD (PORCINE) 5000UNITS/ML 1ML VIAL/SYRINGE SC SCH ×3 (05:14→21:13)
[2023-04-09 06:00] VITALS: BP 120/71; TEMP 98.1; O2SAT 94
[2023-04-09] MEDS: DOCUSATE SODIUM 100MG CAPSULE PO SCH ×2 (09:00→21:00)
[2023-04-09] MEDS: HYDROCORTISONE 2.5% 20GM OINTMENT TOP SCH ×2 (09:08→21:13)
[2023-04-09] MEDS: MAGNESIUM OXIDE 400MG TAB (MAG-OX) PO SCH ×2 (09:08→21:12)
[2023-04-09] MEDS: TERAZOSIN 5MG CAPSULE PO SCH (21:12)
[2023-04-10 06:00] VITALS: BP 132/75; TEMP 97.9; O2SAT 96
[2023-04-10] MEDS: HEPARIN SOD (PORCINE) 5000UNITS/ML 1ML VIAL/SYRINGE SC SCH ×3 (06:00→22:00)
[2023-04-10] MEDS: MAGNESIUM OXIDE 400MG TAB (MAG-OX) PO SCH ×2 (08:28→22:44)
[2023-04-10] MEDS: DOCUSATE SODIUM 100MG CAPSULE PO SCH ×2 (08:29→21:00)
[2023-04-10] MEDS: HYDROCORTISONE 2.5% 20GM OINTMENT TOP SCH ×2 (10:30→22:45)
[2023-04-10 22:44] VITALS: BP 132/76
[2023-04-10] MEDS: TERAZOSIN 5MG CAPSULE PO SCH (22:44)
[2023-04-11 05:00] VITALS: BP 134/78; TEMP 97.7; O2SAT 96
[2023-04-11] MEDS: HEPARIN SOD (PORCINE) 5000UNITS/ML 1ML VIAL/SYRINGE SC SCH (05:26)
[2023-04-11] MEDS: DOCUSATE SODIUM 100MG CAPSULE PO SCH (09:00)
[2023-04-11] MEDS: MAGNESIUM OXIDE 400MG TAB (MAG-OX) PO SCH (09:09)
[2023-04-11] MEDS: HYDROCORTISONE 2.5% 20GM OINTMENT TOP SCH (09:10)
[2023-04-11] MEDS ORDERED: COLA100C5 PO (10:40)
[2023-04-11] MEDS ORDERED: MAGN400T2 PO (10:40)
== END 2023-04-11 12:00 | DRG 682 ==
LOC: M ED 09:03 → EDBD 09:03 → M ED INP 13:06 → M PCU 16:06 → M MS5PR 04-06 23:41
PROVIDERS: ADMIT Internal Medicine; ATTEND Internal Medicine
DX: N17.9 Acute kidney failure, unspecified (principal); G93.41 Metabolic encephalopathy; I50.32 Chronic diastolic (congestive) heart failure; E87.20 Acidosis, unspecified; M62.82 Rhabdomyolysis; N39.0 Urinary tract infection, site not specified; E87.0 Hyperosmolality and hypernatremia; R45.851 Suicidal ideations; I11.0 Hypertensive heart disease with heart failure; D64.9 Anemia, unspecified; R29.6 Repeated falls; I95.9 Hypotension, unspecified; M48.00 Spinal stenosis, site unspecified; N40.0 Benign prostatic hyperplasia without lower urinary tract symptoms; E87.5 Hyperkalemia; L89.321 Pressure ulcer of left buttock, stage 1; F43.20 Adjustment disorder, unspecified; F32.A Depression, unspecified; E83.42 Hypomagnesemia; Z86.16 Personal history of COVID-19; Z88.8 Allergy status to other drugs, medicaments and biological substances; Z79.899 Other long term (current) drug therapy

== ENCOUNTER → 2023-04-23 | Outpatient (REF) | payer MEDICARE, OTHER, BC ==
[~2023-04-23] MED LIST changes: +COLA100C5 PO; +MAGN400T2 PO
[2023-04-23 23:21] LABS: AMORPHOUS SEDIMENT SMALL (NEGATIVE); APPEARANCE, URINE TURBID (CLEAR); BACTERIA, URINE AUTO NEGATIVE (NEGATIVE); BILIRUBIN, URINE AUTO NEGATIVE (NEGATIVE); BLOOD, URINE BLOOD 3+ (NEGATIVE); COLOR, URINE YELLOW (YELLOW); GLUCOSE, URINE (UA) AUTO NEGATIVE (NEGATIVE); KETONE, URINE AUTO NEGATIVE (NEGATIVE); LEUKOCYTE ESTERASE, URINE AUTO 3+ (NEGATIVE); NITRITE, URINE AUTO POSITIVE (NEGATIVE); PROTEIN, URINE AUTO 2+ mg/dL (NEGATIVE); RBC, URINE AUTO TNTC /HPF (0-3); SPECIFIC GRAVITY URINE AUTO 1.017 (1.002-1.035); SQUAMOUS EPITHELIAL CELL UR AU 3 /HPF (0-6); UROBILINOGEN, URINE AUTO 0.2 mg/dL (0.0-2.0); WBC, URINE AUTO TNTC /HPF (0-3)
== END ==
LOC: SKLAB2 07:00
PROVIDERS: ATTEND Internal Medicine
DX: R30.0 Dysuria (principal); R82.998 Other abnormal findings in urine

== ENCOUNTER → 2023-04-28 | Outpatient (REF) | payer MEDICARE, OTHER, BC ==
[2023-04-28 12:45] LABS: BASO # 0.1 10^3/uL (0.0-0.2); EOS # 0.5 10^3/uL (0.0-0.5); EOS % 5.6 % (0.0-3.0); HEMATOCRIT 42.3 % (42.0-52.0); HEMOGLOBIN 13.6 g/dl (13.5-17.5); LYMPH # 2.3 10^3/uL (1.5-5.0); LYMPH % 25.1 % (24.0-44.0); MEAN CORPUSCULAR HEMOGLOBIN 28.3 pg (27.0-33.0); MEAN CORPUSCULAR HGB CONC 32.2 g/dl (32.0-36.5); MEAN CORPUSCULAR VOLUME 88.1 fl (80.0-96.0); MONO # 0.9 10^3/uL (0.0-0.8); MONO % 9.7 % (2.0-8.0); NEUTROPHILS # 5.4 10^3/uL (1.5-8.5); NEUTROPHILS % 58.2 % (36.0-66.0); PLATELET COUNT, AUTOMATED 219 10^3/uL (150-450); WHITE BLOOD COUNT 9.3 10^3/uL (4.0-10.0)
[2023-04-28 12:55] LABS: ALBUMIN 3.2 G/DL (3.2-5.2); BLOOD UREA NITROGEN 27 MG/DL (9-23); CALCIUM LEVEL 8.8 MG/DL (8.3-10.6); CARBON DIOXIDE LEVEL 26 MMOL/L (20-31); CHLORIDE LEVEL 103 MMOL/L (98-107); CREATININE FOR GFR 1.22 MG/DL (0.70-1.30); GLOMERULAR FILTRATION RATE > 60.0 (>35); GLUCOSE, FASTING 89 MG/DL (74-106); PHOSPHORUS LEVEL 2.8 MG/DL (2.4-5.1); POTASSIUM SERUM 4.9 MMOL/L (3.5-5.1); SODIUM LEVEL 137 MMOL/L (136-145)
== END ==
LOC: SKLAB2 11:21
PROVIDERS: ATTEND Internal Medicine
DX: N18.9 Chronic kidney disease, unspecified (principal)

== ENCOUNTER → 2023-05-17 | Outpatient (REF) | payer MEDICARE, OTHER, BC ==
[2023-05-17 13:30] LABS: BASO # 0.1 10^3/uL (0.0-0.2); BASO % 1.1 % (0.0-1.0); EOS # 0.7 10^3/uL (0.0-0.5); EOS % 8.4 % (0.0-3.0); HEMATOCRIT 43.8 % (42.0-52.0); HEMOGLOBIN 14.2 g/dl (13.5-17.5); LYMPH # 2.3 10^3/uL (1.5-5.0); LYMPH % 29.2 % (24.0-44.0); MEAN CORPUSCULAR HEMOGLOBIN 28.4 pg (27.0-33.0); MEAN CORPUSCULAR HGB CONC 32.4 g/dl (32.0-36.5); MEAN CORPUSCULAR VOLUME 87.6 fl (80.0-96.0); MONO # 0.8 10^3/uL (0.0-0.8); MONO % 9.5 % (2.0-8.0); NEUTROPHILS # 4.1 10^3/uL (1.5-8.5); NEUTROPHILS % 51.7 % (36.0-66.0); PLATELET COUNT, AUTOMATED 213 10^3/uL (150-450); WHITE BLOOD COUNT 7.9 10^3/uL (4.0-10.0)
[2023-05-17 14:04] LABS: ALBUMIN 3.5 G/DL (3.2-5.2); BLOOD UREA NITROGEN 26 MG/DL (9-23); CALCIUM LEVEL 9.4 MG/DL (8.3-10.6); CARBON DIOXIDE LEVEL 26 MMOL/L (20-31); CHLORIDE LEVEL 109 MMOL/L (98-107); CREATININE FOR GFR 0.97 MG/DL (0.70-1.30); GLOMERULAR FILTRATION RATE > 60.0 (>35); GLUCOSE, FASTING 141 MG/DL (74-106); PHOSPHORUS LEVEL 2.8 MG/DL (2.4-5.1); POTASSIUM SERUM 4.2 MMOL/L (3.5-5.1); SODIUM LEVEL 141 MMOL/L (136-145)
== END ==
LOC: SKLAB2 13:00
PROVIDERS: ATTEND Internal Medicine
DX: N18.9 Chronic kidney disease, unspecified (principal)

== ENCOUNTER → 2023-05-23 | Outpatient (REF) | payer MEDICARE, OTHER, BC ==
[2023-05-23 15:15] LABS: ALBUMIN 3.5 G/DL (3.2-5.2); ALKALINE PHOSPHATASE 127 U/L (46-116); ALT/SGPT 14 U/L (7.0-40); AST/SGOT 15 U/L (<34); BILIRUBIN,TOTAL 0.3 MG/DL (0.3-1.2); BLOOD UREA NITROGEN 24 MG/DL (9-23); CALCIUM LEVEL 9.1 MG/DL (8.3-10.6); CARBON DIOXIDE LEVEL 26 MMOL/L (20-31); CHLORIDE LEVEL 104 MMOL/L (98-107); GLOMERULAR FILTRATION RATE > 60.0 (>35); GLUCOSE, FASTING 126 MG/DL (74-106); PHOSPHORUS LEVEL 2.7 MG/DL (2.4-5.1); POTASSIUM SERUM 4.2 MMOL/L (3.5-5.1); SODIUM LEVEL 138 MMOL/L (136-145); TOTAL PROTEIN 6.6 G/DL (5.7-8.2)
== END ==
LOC: SKLAB2 13:55
PROVIDERS: ATTEND Internal Medicine
DX: N18.9 Chronic kidney disease, unspecified (principal)

== ENCOUNTER → 2023-06-08 | Outpatient (REF) ==
[2023-06-08 19:13] LABS: APPEARANCE, URINE CLOUDY (CLEAR); BACTERIA, URINE AUTO 1+ (NEGATIVE); BILIRUBIN, URINE AUTO NEGATIVE (NEGATIVE); BLOOD, URINE BLOOD 2+ (NEGATIVE); COLOR, URINE YELLOW (YELLOW); GLUCOSE, URINE (UA) AUTO NEGATIVE (NEGATIVE); KETONE, URINE AUTO NEGATIVE (NEGATIVE); LEUKOCYTE ESTERASE, URINE AUTO 3+ (NEGATIVE); NITRITE, URINE AUTO POSITIVE (NEGATIVE); PROTEIN, URINE AUTO 2+ mg/dL (NEGATIVE); RBC, URINE AUTO 3 /HPF (0-3); SPECIFIC GRAVITY URINE AUTO 1.014 (1.002-1.035); SQUAMOUS EPITHELIAL CELL UR AU 1 /HPF (0-6); TRIPLE PHOSPHATE CRYSTALS SMALL; UROBILINOGEN, URINE AUTO 0.2 mg/dL (0.0-2.0); WBC, URINE AUTO 145 /HPF (0-3)
== END ==
LOC: SKLAB2 07:00
PROVIDERS: ATTEND Internal Medicine
DX: R35.0 Frequency of micturition (principal)

== ENCOUNTER → 2023-07-21 | Outpatient (REF) ==
[2023-07-21 15:50] LABS: BASO % 0.4 % (0.0-1.0); EOS % 0.2 % (0.0-3.0); HEMATOCRIT 45.7 % (42.0-52.0); HEMOGLOBIN 15.1 g/dl (13.5-17.5); LYMPH # 0.3 10^3/uL (1.5-5.0); MEAN CORPUSCULAR HEMOGLOBIN 28.5 pg (27.0-33.0); MEAN CORPUSCULAR VOLUME 86.4 fl (80.0-96.0); MONO # 0.7 10^3/uL (0.0-0.8); MONO % 7.6 % (2.0-8.0); NEUTROPHILS # 8.3 10^3/uL (1.5-8.5); NEUTROPHILS % 88.6 % (36.0-66.0); PLATELET COUNT, AUTOMATED 160 10^3/uL (150-450); RED BLOOD COUNT 5.29 10^6/uL (4.30-6.10); WHITE BLOOD COUNT 9.3 10^3/uL (4.0-10.0)
[2023-07-21 16:20] LABS: ALBUMIN 3.1 G/DL (3.2-5.2); ALKALINE PHOSPHATASE 89 U/L (46-116); ALT/SGPT 15 U/L (7.0-40); AST/SGOT 15 U/L (<34); BILIRUBIN,TOTAL 0.5 MG/DL (0.3-1.2); BLOOD UREA NITROGEN 38 MG/DL (9-23); CALCIUM LEVEL 8.3 MG/DL (8.3-10.6); CARBON DIOXIDE LEVEL 27 MMOL/L (20-31); CHLORIDE LEVEL 106 MMOL/L (98-107); CREATININE FOR GFR 0.97 MG/DL (0.70-1.30); GLOMERULAR FILTRATION RATE > 60.0 (>35); GLUCOSE, FASTING 113 MG/DL (74-106); POTASSIUM SERUM 3.9 MMOL/L (3.5-5.1); SODIUM LEVEL 138 MMOL/L (136-145); TOTAL PROTEIN 5.9 G/DL (5.7-8.2)
== END ==
LOC: SKLAB2 15:09
PROVIDERS: ATTEND Internal Medicine
DX: R10.9 Unspecified abdominal pain (principal)

== ENCOUNTER 2023-08-02 09:50 | Inpatient (IN) | payer BC, MEDICARE, OTHER ==
[~2023-08-02] VITALS: Ht 167.6 cm; Wt 87.0 kg
[2023-08-02 10:58] LABS: HEMATOCRIT 43.2 % (42.0-52.0); HEMOGLOBIN 14.3 g/dl (13.5-17.5); MEAN CORPUSCULAR HEMOGLOBIN 28.7 pg (27.0-33.0); MEAN CORPUSCULAR HGB CONC 33.1 g/dl (32.0-36.5); MEAN CORPUSCULAR VOLUME 86.7 fl (80.0-96.0); PLATELET COUNT, AUTOMATED 186 10^3/uL (150-450); RED BLOOD COUNT 4.98 10^6/uL (4.30-6.10); WHITE BLOOD COUNT 7.4 10^3/uL (4.0-10.0)
[2023-08-02] MEDS ORDERED: MED REC IN PROGRESS XX SCH (11:05)
[2023-08-02 11:22] LABS: ETHYL ALCOHOL (ETHANOL) 0.008 % (0.000-0.010)
[2023-08-02 11:24] LABS: ALBUMIN 3.3 G/DL (3.2-5.2); ALKALINE PHOSPHATASE 91 U/L (46-116); ALT/SGPT 15 U/L (7.0-40); AST/SGOT 16 U/L (<34); BILIRUBIN,DIRECT 0.2 MG/DL (<0.4); BILIRUBIN,TOTAL 0.6 MG/DL (0.3-1.2); BLOOD UREA NITROGEN 21 MG/DL (9-23); CALCIUM LEVEL 8.5 MG/DL (8.3-10.6); CARBON DIOXIDE LEVEL 27 MMOL/L (20-31); CHLORIDE LEVEL 108 MMOL/L (98-107); CREATININE FOR GFR 0.86 MG/DL (0.70-1.30); GLOMERULAR FILTRATION RATE > 60.0 (>35); GLUCOSE, FASTING 109 MG/DL (74-106); POTASSIUM SERUM 4.1 MMOL/L (3.5-5.1); SALICYLATE LEVEL < 3.0 MG/DL (<30); SODIUM LEVEL 141 MMOL/L (136-145); TOTAL PROTEIN 6.1 G/DL (5.7-8.2)
[2023-08-02 11:25] LABS: THYROID STIMULATING HORMONE 0.336 uIU/ML (0.55-4.78)
[2023-08-02] MEDS ORDERED: ACET325C5 PO (11:25)
[2023-08-02] MEDS ORDERED: MAGN400T2 PO (11:25)
[2023-08-02] MEDS ORDERED: BISA10SU27 PR (11:25)
[2023-08-02] MEDS ORDERED: OMEP-173 PO (11:25)
[2023-08-02] MEDS ORDERED: DOCU100C16 PO (11:25)
[2023-08-02] MEDS ORDERED: MYLA1SUS PO (11:25)
[2023-08-02] MEDS ORDERED: HOME MED LIST COMPLETE! XX SCH (11:35)
[2023-08-02 13:31] LABS: AMPHETAMINES LEVEL URINE NEGATIVE (NEGATIVE); BARBITURATES URINE NEGATIVE (NEGATIVE); BENZODIAZEPINES URINE NEGATIVE (NEGATIVE); CANNABINOIDS URINE NEGATIVE (NEGATIVE); COCAINE METABOLITE URINE NEGATIVE (NEGATIVE); METHADONE URINE NEGATIVE (NEGATIVE); OPIATES URINE NEGATIVE (NEGATIVE); PHENCYCLIDINE URINE NEGATIVE (NEGATIVE)
[2023-08-02] MEDS ORDERED: MAALOX 30 ML SUSP *UDC PO PRN (16:35)
[2023-08-02] MEDS ORDERED: IBUPROFEN 400MG TAB PO PRN (16:35)
[2023-08-02] MEDS ORDERED: BISACODYL 10MG SUPP PR PRN (16:35)
[2023-08-02] MEDS ORDERED: MOM 30ML SUSPENSION UDC PO PRN (16:35)
[2023-08-02 18:00] VITALS: BP 119/82; TEMP 96.8; O2SAT 95
[2023-08-02] MEDS: MAGNESIUM OXIDE 400MG TAB (MAG-OX) PO SCH (20:20)
[2023-08-02] MEDS: TERAZOSIN 5MG CAPSULE PO SCH (20:24)
[2023-08-03 06:26] VITALS: BP 132/68; TEMP 97.6; O2SAT 94
[2023-08-03 08:14] LABS: FREE T4 1.17 NG/DL (0.89-1.76)
[2023-08-03] MEDS: OMEPRAZOLE 20MG CAP PO SCH (09:00)
[2023-08-03] MEDS: DOCUSATE SODIUM 100MG CAPSULE PO SCH (10:01)
[2023-08-03] MEDS: FUROSEMIDE 20 MG TAB PO SCH (10:01)
[2023-08-03 18:50] VITALS: BP 124/58; TEMP 98.3; O2SAT 96
[2023-08-03 20:12] VITALS: BP 132/86
[2023-08-04 06:09] VITALS: BP 152/86; TEMP 97.8; O2SAT 97
[2023-08-04] MEDS: FUROSEMIDE 20 MG TAB PO SCH (09:38)
[2023-08-04 14:31] VITALS: BP 166/76; TEMP 97.6; O2SAT 98
[2023-08-05 06:26] VITALS: BP 140/77; TEMP 97.9; O2SAT 98
[2023-08-05 15:59] VITALS: BP 134/76; TEMP 98.1; O2SAT 96
[2023-08-06 06:40] VITALS: BP 120/62; TEMP 98.7; O2SAT 95
[2023-08-06 17:32] VITALS: BP 135/83; TEMP 98.7; O2SAT 97
[2023-08-06] MEDS: diphenhydrAMINE 25MG CAP PO PRN (20:10)
[2023-08-06] MEDS: traZODone 50 MG TAB PO PRN (20:10)
[2023-08-07 18:24] VITALS: BP 144/72; TEMP 99
[2023-08-07 20:14] VITALS: BP 160/71
[2023-08-07] MEDS: ACETAMINOPHEN TAB 650MG DOSE (2X325MG) PO PRN (20:16)
[2023-08-08 06:45] VITALS: BP 105/52; TEMP 97.7; O2SAT 95
[2023-08-08 15:36] VITALS: BP 124/60; TEMP 97.1; O2SAT 95
[2023-08-09 06:30] VITALS: BP 134/60; TEMP 98.1; O2SAT 100
[2023-08-09 18:10] VITALS: BP 149/87; TEMP 97.7
[2023-08-10 06:29] VITALS: BP 165/81; TEMP 97.7
[2023-08-10 15:41] VITALS: BP 142/78; TEMP 97.8
[2023-08-11 06:06] VITALS: BP 138/66; TEMP 97.8
[2023-08-11 15:06] VITALS: BP 134/80; TEMP 97.9; O2SAT 97
[2023-08-12 06:44] VITALS: BP 147/72; TEMP 97.8; O2SAT 96
[2023-08-12 18:15] VITALS: BP 162/100; TEMP 97.3; O2SAT 99
[2023-08-12 20:08] VITALS: BP 144/78
[2023-08-13 06:34] VITALS: BP 127/69; TEMP 99; O2SAT 95
[2023-08-13 17:21] VITALS: BP 159/72; TEMP 97.9; O2SAT 94
[2023-08-14 06:32] VITALS: BP 138/63; TEMP 97.8; O2SAT 94
[2023-08-14 18:48] VITALS: BP 145/76; TEMP 97.8; O2SAT 98
[2023-08-15 06:10] VITALS: BP 141/64; TEMP 97.5; O2SAT 95
[2023-08-15 16:21] VITALS: BP 126/76; TEMP 98.1
[2023-08-16 06:24] VITALS: BP 150/75; TEMP 97.6; O2SAT 95
[2023-08-16] MEDS: ENOXAPARIN 40MG/0.4ML SYRINGE (J1650 PER 10MG) SC SCH (09:00)
[2023-08-16 17:36] VITALS: BP 137/67; TEMP 97.9
[2023-08-16 20:09] VITALS: BP 154/77
[2023-08-17 06:37] VITALS: BP 141/74; TEMP 97.7; O2SAT 96
[2023-08-17 17:42] VITALS: BP 159/73; TEMP 97.5; O2SAT 94
[2023-08-17 20:01] VITALS: BP 164/74
[2023-08-18 06:48] VITALS: BP 162/79; TEMP 98; O2SAT 96
[2023-08-18 16:31] VITALS: BP 129/68; TEMP 98.3; O2SAT 95
[2023-08-19 06:15] VITALS: BP 114/63; TEMP 97.9; O2SAT 95
[2023-08-19 15:55] VITALS: BP 148/78; TEMP 97.5; O2SAT 96
[2023-08-20 06:40] VITALS: BP 131/66; TEMP 97.6; O2SAT 95
[2023-08-20 12:45] LABS: ALBUMIN 3.6 G/DL (3.2-5.2); ALKALINE PHOSPHATASE 111 U/L (46-116); ALT/SGPT 23 U/L (7.0-40); AST/SGOT 18 U/L (<34); BILIRUBIN,TOTAL 0.2 MG/DL (0.3-1.2); BLOOD UREA NITROGEN 31 MG/DL (9-23); CALCIUM LEVEL 9.2 MG/DL (8.3-10.6); CARBON DIOXIDE LEVEL 27 MMOL/L (20-31); CHLORIDE LEVEL 103 MMOL/L (98-107); GLOMERULAR FILTRATION RATE > 60.0 (>35); GLUCOSE, FASTING 126 MG/DL (74-106); POTASSIUM SERUM 4.4 MMOL/L (3.5-5.1); SODIUM LEVEL 138 MMOL/L (136-145); TOTAL PROTEIN 6.6 G/DL (5.7-8.2)
[2023-08-20 16:07] VITALS: BP 134/74; TEMP 98; O2SAT 96
[2023-08-20 20:09] VITALS: BP 152/72
[2023-08-21 06:48] VITALS: BP 119/64; TEMP 98.5; O2SAT 96
[2023-08-21 16:46] VITALS: BP 139/75; TEMP 97.7; O2SAT 99
[2023-08-22 06:14] VITALS: BP 148/74; TEMP 97.8; O2SAT 97
[2023-08-22 16:05] VITALS: BP 146/70; TEMP 97.6
[2023-08-23 06:35] VITALS: BP 148/69; TEMP 98.2; O2SAT 95
[2023-08-23 18:20] VITALS: BP 149/88; TEMP 98.2
[2023-08-24 06:24] VITALS: BP 145/70; TEMP 98; O2SAT 94
[2023-08-24 17:01] VITALS: BP 118/62; TEMP 97.9; O2SAT 97
[2023-08-25 06:16] VITALS: BP 144/78; TEMP 97.6; O2SAT 96
[2023-08-25 16:31] VITALS: BP 137/68; TEMP 97.7; O2SAT 97
[2023-08-26 06:27] VITALS: BP 166/77; TEMP 97.9; O2SAT 95
[2023-08-26 16:05] VITALS: BP 150/70; TEMP 98; O2SAT 97
[2023-08-27 06:20] VITALS: BP 166/84; TEMP 98.2; O2SAT 94
[2023-08-27 16:26] VITALS: BP 134/78; TEMP 98; O2SAT 98
[2023-08-27 20:19] VITALS: BP 139/90
[2023-08-28 06:14] VITALS: BP 143/71; TEMP 98.3; O2SAT 96
[2023-08-28 18:18] VITALS: BP 121/72; TEMP 98
[2023-08-29 06:03] VITALS: BP 124/57; TEMP 97.9; O2SAT 95
[2023-08-29 18:47] VITALS: BP 128/88; TEMP 98.2
[2023-08-30 05:56] VITALS: BP 122/77; TEMP 98; O2SAT 95
[2023-08-30 17:22] VITALS: BP 134/66; TEMP 97.5
[2023-08-31 06:18] VITALS: BP 140/90; TEMP 98.2; O2SAT 96
[2023-08-31 16:38] VITALS: BP_SYST 130; BP_SYST 133; BP_DIAS 61; BP_DIAS 68; TEMP 97.2; TEMP 98.3; O2SAT 100; O2SAT 96
[2023-08-31 20:03] VITALS: BP 148/74
[2023-09-01 06:46] VITALS: BP 128/60; TEMP 97.8; O2SAT 95
[2023-09-01] MEDS ORDERED: FURO20TA2 PO (09:51)
[2023-09-01] MEDS ORDERED: ACET325C5 PO (15:20)
[2023-09-01] MEDS ORDERED: OMEP-173 PO (15:20)
[2023-09-01] MEDS ORDERED: TERA5CAP3 PO (15:20)
[2023-09-01] MEDS ORDERED: COLA100C5 PO (15:20)
[2023-09-01] MEDS ORDERED: MAGN400T2 PO (15:20)
[2023-09-01] MEDS ORDERED: MOM30SS2 PO (15:20)
[2023-09-01] MEDS ORDERED: MYLASSUD PO (15:20)
[2023-09-01] MEDS ORDERED: BISA10SU PR (15:20)
[2023-09-01 16:31] VITALS: BP 140/72; TEMP 97.4; O2SAT 96
== END 2023-09-01 20:01 | disposition home or self-care (01) | DRG 881 ==
LOC: EDBD 09:50 → M ED 09:50 → M ED INP 16:34 → M PSY 17:58
PROVIDERS: ADMIT Student in an Organized Health Care Education/Training Program; ATTEND Student in an Organized Health Care Education/Training Program
DX: F43.21 Adjustment disorder with depressed mood (principal); R45.851 Suicidal ideations; I50.32 Chronic diastolic (congestive) heart failure; I13.0 Hypertensive heart and chronic kidney disease with heart failure and stage 1 through stage 4 chronic kidney disease, or unspecified chronic kidney disease; F60.3 Borderline personality disorder; G14 Postpolio syndrome; Z88.8 Allergy status to other drugs, medicaments and biological substances; R29.6 Repeated falls; R53.83 Other fatigue; Z79.899 Other long term (current) drug therapy; N18.30 Chronic kidney disease, stage 3 unspecified; Z86.16 Personal history of COVID-19; Z91.148 Patient's other noncompliance with medication regimen for other reason

== ENCOUNTER 2023-09-06 17:46 | Inpatient (IN) | payer MEDICARE ==
[~2023-09-06] VITALS: Ht 170.2 cm; Wt 87.7 kg
[~2023-09-06 17:46] MED LIST changes: +ACET325C5 PO; +BISA10SU PR; +BISA10SU27 PR; +DOCU100C16 PO; +MOM30SS2 PO; +MYLA1SUS PO; +MYLASSUD PO; +OMEP-173 PO
[2023-09-06] MEDS: FUROSEMIDE 40MG/4ML VIAL IV ONE (19:38)
[2023-09-06 19:42] LABS: BASO # 0.1 10^3/uL (0.0-0.2); BASO % 0.8 % (0.0-1.0); EOS # 0.6 10^3/uL (0.0-0.5); EOS % 6.4 % (0.0-3.0); HEMOGLOBIN 12.9 g/dl (13.5-17.5); LYMPH # 1.8 10^3/uL (1.5-5.0); LYMPH % 19.5 % (24.0-44.0); MEAN CORPUSCULAR HEMOGLOBIN 28.7 pg (27.0-33.0); MEAN CORPUSCULAR HGB CONC 33.1 g/dl (32.0-36.5); MEAN CORPUSCULAR VOLUME 86.9 fl (80.0-96.0); MONO % 11.1 % (2.0-8.0); NEUTROPHILS # 5.6 10^3/uL (1.5-8.5); PLATELET COUNT, AUTOMATED 187 10^3/uL (150-450); RED BLOOD COUNT 4.49 10^6/uL (4.30-6.10); VENOUS BASE EXCESS -0.1 (-2.0-2.0); VENOUS HCO3 24.7 MMOL/L (23.0-27.0); VENOUS O2 SATURATION 87.3 % (60.0-80.0); VENOUS PARTIAL PRESSURE CO2 40.7 mmHg (38.0-50.0); VENOUS PARTIAL PRESSURE O2 51.6 mmHg (30.0-50.0); VENOUS PH 7.401 UNITS (7.330-7.430); VENOUS STANDARD HCO3 24.2 MMOL/L
[2023-09-06 19:54] LABS: INR 1.13; PROTHROMBIN TIME 14.1 SECONDS (12.5-14.5)
[2023-09-06 20:16] LABS: CK-MB VALUE MASS 8.5 NG/ML (<3.6)
[2023-09-06 20:17] LABS: ALBUMIN 3.6 G/DL (3.2-5.2); ALKALINE PHOSPHATASE 114 U/L (46-116); ALT/SGPT 23 U/L (7.0-40); AST/SGOT 31 U/L (<34); BILIRUBIN,DIRECT 0.1 MG/DL (<0.4); BILIRUBIN,TOTAL 0.6 MG/DL (0.3-1.2); BLOOD UREA NITROGEN 33 MG/DL (9-23); CALCIUM LEVEL 8.8 MG/DL (8.3-10.6); CARBON DIOXIDE LEVEL 25 MMOL/L (20-31); CHLORIDE LEVEL 107 MMOL/L (98-107); GLOMERULAR FILTRATION RATE > 60.0 (>35); GLUCOSE, FASTING 96 MG/DL (74-106); POTASSIUM SERUM 4.1 MMOL/L (3.5-5.1); SODIUM LEVEL 142 MMOL/L (136-145); TOTAL PROTEIN 6.3 G/DL (5.7-8.2)
[2023-09-06 20:20] LABS: THYROID STIMULATING HORMONE 0.273 uIU/ML (0.55-4.78)
[2023-09-06 20:23] LABS: CPK CREATINE PHOSPHOKINASE 392 U/L (46-171); MB/CK RELATIVE INDEX 2.16 (< OR =4)
[2023-09-06] MEDS: LIDOCAINE 2% 5ML JELLY UROJET TOP ONE (20:23)
[2023-09-06] MEDS: MORPHINE 4 MG/ML 1ML VIAL IV ONE (21:17)
[2023-09-06 21:47] LABS: FREE T4 1.34 NG/DL (0.89-1.76)
[2023-09-06] MEDS ORDERED: TERA5CAP3 PO (22:26)
[2023-09-06] MEDS ORDERED: FURO40TA2 PO (22:26)
[2023-09-06] MEDS ORDERED: HOME MED LIST COMPLETE! XX SCH (22:30)
[2023-09-07] MEDS ORDERED: MAALOX 30 ML SUSP *UDC PO PRN (00:15)
[2023-09-07] MEDS ORDERED: MOM 30ML SUSPENSION UDC PO PRN (00:15)
[2023-09-07 03:00] VITALS: BP 90/52; TEMP 97.5; O2SAT 94
[2023-09-07 06:06] LABS: HEMATOCRIT 35.9 % (42.0-52.0); HEMOGLOBIN 11.7 g/dl (13.5-17.5); MEAN CORPUSCULAR HEMOGLOBIN 28.5 pg (27.0-33.0); MEAN CORPUSCULAR HGB CONC 32.6 g/dl (32.0-36.5); MEAN CORPUSCULAR VOLUME 87.3 fl (80.0-96.0); PLATELET COUNT, AUTOMATED 176 10^3/uL (150-450); RED BLOOD COUNT 4.11 10^6/uL (4.30-6.10); WHITE BLOOD COUNT 8.8 10^3/uL (4.0-10.0)
[2023-09-07 06:37] LABS: ALBUMIN 2.9 G/DL (3.2-5.2); ALKALINE PHOSPHATASE 99 U/L (46-116); ALT/SGPT 19 U/L (7.0-40); AST/SGOT 29 U/L (<34); BILIRUBIN,TOTAL 0.8 MG/DL (0.3-1.2); BLOOD UREA NITROGEN 28 MG/DL (9-23); CALCIUM LEVEL 8.2 MG/DL (8.3-10.6); CARBON DIOXIDE LEVEL 27 MMOL/L (20-31); CHLORIDE LEVEL 106 MMOL/L (98-107); CREATININE FOR GFR 0.91 MG/DL (0.70-1.30); GLOMERULAR FILTRATION RATE > 60.0 (>35); GLUCOSE, FASTING 104 MG/DL (74-106); MAGNESIUM LEVEL 1.9 MG/DL (1.8-2.4); POTASSIUM SERUM 3.7 MMOL/L (3.5-5.1); SODIUM LEVEL 140 MMOL/L (136-145); TOTAL PROTEIN 5.5 G/DL (5.7-8.2)
[2023-09-07 08:00] VITALS: BP 92/52; TEMP 97.9; O2SAT 92
[2023-09-07 09:00] VITALS: BP 92/50; TEMP 97.9; O2SAT 92
[2023-09-07] MEDS: LOSARTAN 50MG TABLET PO SCH (09:00)
[2023-09-07] MEDS: FUROSEMIDE 40 MG TAB PO SCH (09:00)
[2023-09-07] MEDS: DOCUSATE SODIUM 100MG CAPSULE PO SCH (09:20)
[2023-09-07] MEDS: OMEPRAZOLE 20MG CAP PO SCH (09:21)
[2023-09-07] MEDS: MAGNESIUM OXIDE 400MG TAB (MAG-OX) PO SCH (09:21)
[2023-09-07] MEDS: ENOXAPARIN 40MG/0.4ML SYRINGE (J1650 PER 10MG) SC SCH (09:26)
[2023-09-07] MEDS: FUROSEMIDE 40MG/4ML VIAL IV SCH (11:18)
[2023-09-07] MEDS: cefTRIAXone SOD 1 GM in D5W MINI-BAG PLUS 50 ML IV SCH (12:30)
[2023-09-07 14:00] VITALS: BP 94/50; TEMP 97.9; O2SAT 94
[2023-09-07 19:40] VITALS: BP 87/50; TEMP 98.2; O2SAT 94
[2023-09-07 21:00] VITALS: O2SAT 92
[2023-09-07] MEDS: TERAZOSIN 5MG CAPSULE PO SCH (21:00)
[2023-09-08 04:00] VITALS: BP 94/45; TEMP 97.9; O2SAT 90
[2023-09-08] MEDS ORDERED: FUROSEMIDE 40MG/4ML VIAL IV SCH (09:00)
[2023-09-08 09:03] LABS: HEMATOCRIT 35.5 % (42.0-52.0); HEMOGLOBIN 11.8 g/dl (13.5-17.5); MEAN CORPUSCULAR HEMOGLOBIN 29.1 pg (27.0-33.0); MEAN CORPUSCULAR HGB CONC 33.2 g/dl (32.0-36.5); MEAN CORPUSCULAR VOLUME 87.7 fl (80.0-96.0); PLATELET COUNT, AUTOMATED 170 10^3/uL (150-450); RED BLOOD COUNT 4.05 10^6/uL (4.30-6.10); WHITE BLOOD COUNT 7.4 10^3/uL (4.0-10.0)
[2023-09-08 09:20] LABS: BLOOD UREA NITROGEN 24 MG/DL (9-23); CALCIUM LEVEL 8.3 MG/DL (8.3-10.6); CARBON DIOXIDE LEVEL 29 MMOL/L (20-31); CHLORIDE LEVEL 107 MMOL/L (98-107); CREATININE FOR GFR 0.92 MG/DL (0.70-1.30); GLOMERULAR FILTRATION RATE > 60.0 (>35); GLUCOSE, FASTING 88 MG/DL (74-106); POTASSIUM SERUM 3.9 MMOL/L (3.5-5.1); SODIUM LEVEL 140 MMOL/L (136-145)
[2023-09-08] MEDS: POTASSIUM CHLORIDE 10MEQ SR TABLET PO SCH (09:40)
[2023-09-08] MEDS: LOSARTAN 50MG TABLET PO SCH (09:40)
[2023-09-08 12:16] LABS: HEMATOCRIT 40.2 % (42.0-52.0); HEMOGLOBIN 13.2 g/dl (13.5-17.5); MEAN CORPUSCULAR HEMOGLOBIN 28.8 pg (27.0-33.0); MEAN CORPUSCULAR HGB CONC 32.8 g/dl (32.0-36.5); MEAN CORPUSCULAR VOLUME 87.6 fl (80.0-96.0); PLATELET COUNT, AUTOMATED 196 10^3/uL (150-450); RED BLOOD COUNT 4.59 10^6/uL (4.30-6.10)
[2023-09-08 12:39] LABS: BLOOD UREA NITROGEN 25 MG/DL (9-23); CALCIUM LEVEL 8.8 MG/DL (8.3-10.6); CARBON DIOXIDE LEVEL 30 MMOL/L (20-31); CHLORIDE LEVEL 105 MMOL/L (98-107); CREATININE FOR GFR 0.97 MG/DL (0.70-1.30); GLOMERULAR FILTRATION RATE > 60.0 (>35); GLUCOSE, FASTING 118 MG/DL (74-106); POTASSIUM SERUM 3.8 MMOL/L (3.5-5.1); SODIUM LEVEL 141 MMOL/L (136-145)
[2023-09-08 14:00] VITALS: BP 103/60; TEMP 98.1; O2SAT 97
[2023-09-08 19:57] VITALS: BP 112/57; TEMP 98.6; O2SAT 93
[2023-09-08] MEDS: FUROSEMIDE 40MG/4ML VIAL IV SCH (20:05)
[2023-09-09 04:10] VITALS: BP 111/62; TEMP 97.5; O2SAT 93
[2023-09-09 05:28] LABS: HEMATOCRIT 36.7 % (42.0-52.0); MEAN CORPUSCULAR HEMOGLOBIN 28.8 pg (27.0-33.0); MEAN CORPUSCULAR HGB CONC 32.7 g/dl (32.0-36.5); MEAN CORPUSCULAR VOLUME 88.2 fl (80.0-96.0); PLATELET COUNT, AUTOMATED 179 10^3/uL (150-450); RED BLOOD COUNT 4.16 10^6/uL (4.30-6.10); WHITE BLOOD COUNT 8.3 10^3/uL (4.0-10.0)
[2023-09-09 05:52] LABS: BLOOD UREA NITROGEN 29 MG/DL (9-23); CALCIUM LEVEL 8.1 MG/DL (8.3-10.6); CARBON DIOXIDE LEVEL 29 MMOL/L (20-31); CHLORIDE LEVEL 106 MMOL/L (98-107); CREATININE FOR GFR 0.97 MG/DL (0.70-1.30); GLOMERULAR FILTRATION RATE > 60.0 (>35); GLUCOSE, FASTING 98 MG/DL (74-106); POTASSIUM SERUM 4.2 MMOL/L (3.5-5.1); SODIUM LEVEL 141 MMOL/L (136-145)
[2023-09-09] MEDS: ACETAMINOPHEN TAB 650MG DOSE (2X325MG) PO PRN (08:18)
[2023-09-09 14:00] VITALS: BP 101/53; TEMP 97.7; O2SAT 95
[2023-09-09 19:59] VITALS: BP 115/59; TEMP 97.7; O2SAT 95
[2023-09-10 04:10] VITALS: BP 119/65; TEMP 97.3; O2SAT 96
[2023-09-10 06:57] LABS: HEMATOCRIT 39.1 % (42.0-52.0); HEMOGLOBIN 12.5 g/dl (13.5-17.5); MEAN CORPUSCULAR HEMOGLOBIN 28.7 pg (27.0-33.0); MEAN CORPUSCULAR VOLUME 89.9 fl (80.0-96.0); PLATELET COUNT, AUTOMATED 179 10^3/uL (150-450); RED BLOOD COUNT 4.35 10^6/uL (4.30-6.10); WHITE BLOOD COUNT 7.2 10^3/uL (4.0-10.0)
[2023-09-10 14:00] VITALS: BP 92/46; TEMP 97.5; O2SAT 95
[2023-09-10 14:46] VITALS: BP 97/52
[2023-09-10 19:29] VITALS: BP 115/61; TEMP 97.7; O2SAT 95
[2023-09-11 04:37] VITALS: BP 122/56; TEMP 97.9; O2SAT 93
[2023-09-11 07:05] LABS: HEMATOCRIT 39.2 % (42.0-52.0); HEMOGLOBIN 12.8 g/dl (13.5-17.5); MEAN CORPUSCULAR HEMOGLOBIN 28.9 pg (27.0-33.0); MEAN CORPUSCULAR HGB CONC 32.7 g/dl (32.0-36.5); MEAN CORPUSCULAR VOLUME 88.5 fl (80.0-96.0); PLATELET COUNT, AUTOMATED 193 10^3/uL (150-450); RED BLOOD COUNT 4.43 10^6/uL (4.30-6.10); WHITE BLOOD COUNT 7.5 10^3/uL (4.0-10.0)
[2023-09-11 07:33] LABS: ALBUMIN 2.7 G/DL (3.2-5.2); ALKALINE PHOSPHATASE 102 U/L (46-116); ALT/SGPT 19 U/L (7.0-40); AST/SGOT 14 U/L (<34); BILIRUBIN,TOTAL 0.3 MG/DL (0.3-1.2); BLOOD UREA NITROGEN 26 MG/DL (9-23); CALCIUM LEVEL 8.4 MG/DL (8.3-10.6); CARBON DIOXIDE LEVEL 29 MMOL/L (20-31); CHLORIDE LEVEL 104 MMOL/L (98-107); CREATININE FOR GFR 0.96 MG/DL (0.70-1.30); GLOMERULAR FILTRATION RATE > 60.0 (>35); GLUCOSE, FASTING 100 MG/DL (74-106); MAGNESIUM LEVEL 2.1 MG/DL (1.8-2.4); POTASSIUM SERUM 4.5 MMOL/L (3.5-5.1); SODIUM LEVEL 138 MMOL/L (136-145); TOTAL PROTEIN 5.6 G/DL (5.7-8.2)
[2023-09-11] MEDS: FUROSEMIDE 40MG/4ML VIAL IV SCH (08:08)
[2023-09-11 14:00] VITALS: BP_SYST 112; BP_SYST 120; BP_DIAS 50; BP_DIAS 52; TEMP 97.2; O2SAT 95; O2SAT 96
[2023-09-11 20:17] VITALS: BP 119/66; TEMP 97.9; O2SAT 94
[2023-09-11 20:18] VITALS: TEMP 98.7
[2023-09-12 06:17] VITALS: TEMP 97.7
[2023-09-12 06:18] VITALS: BP 104/63; TEMP 97.9; O2SAT 95
[2023-09-12 06:40] LABS: HEMATOCRIT 38.8 % (42.0-52.0); HEMOGLOBIN 12.7 g/dl (13.5-17.5); MEAN CORPUSCULAR HEMOGLOBIN 28.7 pg (27.0-33.0); MEAN CORPUSCULAR HGB CONC 32.7 g/dl (32.0-36.5); MEAN CORPUSCULAR VOLUME 87.6 fl (80.0-96.0); PLATELET COUNT, AUTOMATED 197 10^3/uL (150-450); RED BLOOD COUNT 4.43 10^6/uL (4.30-6.10); WHITE BLOOD COUNT 6.8 10^3/uL (4.0-10.0)
[2023-09-12 06:53] LABS: BLOOD UREA NITROGEN 28 MG/DL (9-23); CALCIUM LEVEL 8.4 MG/DL (8.3-10.6); CARBON DIOXIDE LEVEL 30 MMOL/L (20-31); CHLORIDE LEVEL 103 MMOL/L (98-107); CREATININE FOR GFR 0.99 MG/DL (0.70-1.30); GLOMERULAR FILTRATION RATE > 60.0 (>35); GLUCOSE, FASTING 98 MG/DL (74-106); POTASSIUM SERUM 4.2 MMOL/L (3.5-5.1); SODIUM LEVEL 138 MMOL/L (136-145)
[2023-09-12] MEDS: CEFDINIR 300 MG CAP (OMNICEF) PO SCH (08:49)
[2023-09-12 14:00] VITALS: BP 78/41; TEMP 97.3; O2SAT 95
[2023-09-12 15:05] VITALS: BP 111/65
[2023-09-12 20:00] VITALS: BP_SYST 114; BP_SYST 130; BP_DIAS 53; BP_DIAS 82; TEMP 97.7; O2SAT 93
[2023-09-13] MEDS: NYSTATIN 100,000 UNITS/GM TOPICAL PWD 15GM TOP SCH (02:53)
[2023-09-13 05:58] LABS: HEMATOCRIT 40.6 % (42.0-52.0); HEMOGLOBIN 13.4 g/dl (13.5-17.5); MEAN CORPUSCULAR HEMOGLOBIN 28.6 pg (27.0-33.0); MEAN CORPUSCULAR VOLUME 86.8 fl (80.0-96.0); PLATELET COUNT, AUTOMATED 185 10^3/uL (150-450); RED BLOOD COUNT 4.68 10^6/uL (4.30-6.10); WHITE BLOOD COUNT 6.8 10^3/uL (4.0-10.0)
[2023-09-13 06:00] VITALS: BP 106/71; TEMP 97.7; O2SAT 95
[2023-09-13] MEDS ORDERED: ACETAMINOPHEN TAB 650MG DOSE (2X325MG) PO SCH (07:30)
[2023-09-13] MEDS: FUROSEMIDE 40 MG TAB PO SCH (08:57)
[2023-09-13 14:00] VITALS: BP 106/69; TEMP 97.2; O2SAT 94
[2023-09-13 20:00] VITALS: BP 120/60; TEMP 97.6; O2SAT 94
[2023-09-14 06:00] VITALS: BP 117/64; TEMP 97.3; O2SAT 92
[2023-09-14 14:00] VITALS: BP 143/78; TEMP 97.7; O2SAT 98
[2023-09-14 20:24] VITALS: BP 143/71; TEMP 97.7; O2SAT 94
[2023-09-15 04:00] VITALS: BP 132/61; TEMP 98.1; O2SAT 92
[2023-09-15 14:00] VITALS: BP 133/79; TEMP 96; O2SAT 98
[2023-09-15 20:23] VITALS: BP 133/79; TEMP 97.5; O2SAT 96
[2023-09-16 05:03] VITALS: BP 119/57; TEMP 97.5; O2SAT 95
[2023-09-16 06:07] LABS: HEMATOCRIT 38.4 % (42.0-52.0); HEMOGLOBIN 12.4 g/dl (13.5-17.5); MEAN CORPUSCULAR HEMOGLOBIN 28.5 pg (27.0-33.0); MEAN CORPUSCULAR HGB CONC 32.3 g/dl (32.0-36.5); MEAN CORPUSCULAR VOLUME 88.3 fl (80.0-96.0); PLATELET COUNT, AUTOMATED 209 10^3/uL (150-450); RED BLOOD COUNT 4.35 10^6/uL (4.30-6.10)
[2023-09-16 14:00] VITALS: BP 132/69; TEMP 97.1; O2SAT 96
[2023-09-16 20:32] VITALS: BP 119/54; TEMP 97.7; O2SAT 94
[2023-09-17 05:02] VITALS: BP 118/55; TEMP 99.5; O2SAT 96
[2023-09-17 14:00] VITALS: BP 118/67; TEMP 97.9; O2SAT 99
[2023-09-17 20:47] VITALS: BP 118/68; TEMP 97.7; O2SAT 94
[2023-09-17] MEDS: ASPERCREME TOP SCH (22:00)
[2023-09-18 04:27] VITALS: BP 115/67; TEMP 97.9; O2SAT 95
[2023-09-18 06:37] LABS: ALBUMIN 2.8 G/DL (3.2-5.2); ALKALINE PHOSPHATASE 112 U/L (46-116); ALT/SGPT 17 U/L (7.0-40); AST/SGOT 10 U/L (<34); BILIRUBIN,TOTAL 0.3 MG/DL (0.3-1.2); BLOOD UREA NITROGEN 26 MG/DL (9-23); CALCIUM LEVEL 8.4 MG/DL (8.3-10.6); CARBON DIOXIDE LEVEL 27 MMOL/L (20-31); CHLORIDE LEVEL 104 MMOL/L (98-107); CREATININE FOR GFR 0.83 MG/DL (0.70-1.30); GLOMERULAR FILTRATION RATE > 60.0 (>35); GLUCOSE, FASTING 77 MG/DL (74-106); POTASSIUM SERUM 4.1 MMOL/L (3.5-5.1); SODIUM LEVEL 139 MMOL/L (136-145); TOTAL PROTEIN 5.7 G/DL (5.7-8.2)
[2023-09-18 08:47] VITALS: BP 124/62
[2023-09-18 14:00] VITALS: BP_SYST 141; BP_SYST 91; BP_DIAS 54; BP_DIAS 89; TEMP 96.8; TEMP 97.5; O2SAT 96; O2SAT 98
[2023-09-18 20:00] VITALS: BP 131/82; TEMP 97.5; O2SAT 94
[2023-09-19 05:58] LABS: HEMOGLOBIN 13.1 g/dl (13.5-17.5); MEAN CORPUSCULAR HEMOGLOBIN 28.7 pg (27.0-33.0); MEAN CORPUSCULAR HGB CONC 32.8 g/dl (32.0-36.5); MEAN CORPUSCULAR VOLUME 87.7 fl (80.0-96.0); PLATELET COUNT, AUTOMATED 214 10^3/uL (150-450); RED BLOOD COUNT 4.56 10^6/uL (4.30-6.10); WHITE BLOOD COUNT 7.4 10^3/uL (4.0-10.0)
[2023-09-19 06:05] VITALS: BP 134/90; TEMP 97.3; O2SAT 96
[2023-09-19 08:33] VITALS: BP 106/54
[2023-09-19 14:00] VITALS: BP 122/62; TEMP 97.5; O2SAT 97
[2023-09-19 20:43] VITALS: BP 126/93; TEMP 96.8; O2SAT 90
[2023-09-20 04:44] VITALS: BP 124/63; TEMP 97.5; O2SAT 96
[2023-09-20 08:09] VITALS: BP 132/80
[2023-09-20 08:12] LABS: BLOOD UREA NITROGEN 24 MG/DL (9-23); CALCIUM LEVEL 9.1 MG/DL (8.3-10.6); CARBON DIOXIDE LEVEL 27 MMOL/L (20-31); CHLORIDE LEVEL 105 MMOL/L (98-107); CREATININE FOR GFR 0.75 MG/DL (0.70-1.30); GLOMERULAR FILTRATION RATE > 60.0 (>35); GLUCOSE, FASTING 82 MG/DL (74-106); POTASSIUM SERUM 4.3 MMOL/L (3.5-5.1); SODIUM LEVEL 138 MMOL/L (136-145)
[2023-09-20 14:38] VITALS: BP 130/77; TEMP 97.5; O2SAT 94
[2023-09-20 20:02] VITALS: BP 107/59; TEMP 97.9; O2SAT 95
[2023-09-20 20:19] VITALS: BP 107/59
[2023-09-21 05:06] VITALS: BP 116/68; TEMP 98.1; O2SAT 94
[2023-09-21 08:33] VITALS: BP 136/73
== END 2023-09-21 15:01 | disposition home health service (06) | DRG 602 ==
LOC: M ED 17:46 → M ED INP 23:39 → ENRESERV 09-07 01:38 → M MSPAV 09-07 02:33
PROVIDERS: ADMIT Family Medicine; ATTEND Student in an Organized Health Care Education/Training Program
DX: L03.115 Cellulitis of right lower limb (principal); I50.33 Acute on chronic diastolic (congestive) heart failure; R29.6 Repeated falls; I25.10 Atherosclerotic heart disease of native coronary artery without angina pectoris; I11.0 Hypertensive heart disease with heart failure; N40.0 Benign prostatic hyperplasia without lower urinary tract symptoms; Z79.899 Other long term (current) drug therapy; Z66 Do not resuscitate; I73.9 Peripheral vascular disease, unspecified; G14 Postpolio syndrome

== ENCOUNTER 2023-10-01 23:16 | Observation (INO) | payer MEDICARE ==
[~2023-10-01] VITALS: Ht 175.3 cm; Wt 90.6 kg
[2023-10-01] MEDS: TERAZOSIN 5MG CAPSULE PO SCH (21:00)
[~2023-10-01 23:16] MED LIST changes: +FURO40TA2 PO
[2023-10-01 23:55] LABS: BASO # 0.1 10^3/uL (0.0-0.2); BASO % 0.5 % (0.0-1.0); EOS # 0.3 10^3/uL (0.0-0.5); EOS % 2.6 % (0.0-3.0); HEMATOCRIT 40.5 % (42.0-52.0); HEMOGLOBIN 13.5 g/dl (13.5-17.5); LYMPH # 1.6 10^3/uL (1.5-5.0); LYMPH % 15.6 % (24.0-44.0); MEAN CORPUSCULAR HGB CONC 33.3 g/dl (32.0-36.5); MEAN CORPUSCULAR VOLUME 87.1 fl (80.0-96.0); MONO # 1.1 10^3/uL (0.0-0.8); MONO % 10.8 % (2.0-8.0); NEUTROPHILS # 7.2 10^3/uL (1.5-8.5); NEUTROPHILS % 70.2 % (36.0-66.0); PLATELET COUNT, AUTOMATED 224 10^3/uL (150-450); RED BLOOD COUNT 4.65 10^6/uL (4.30-6.10); WHITE BLOOD COUNT 10.3 10^3/uL (4.0-10.0)
[2023-10-02 00:19] LABS: ALBUMIN 3.1 G/DL (3.2-5.2); ALKALINE PHOSPHATASE 122 U/L (46-116); ALT/SGPT 23 U/L (7.0-40); AST/SGOT 28 U/L (<34); BILIRUBIN,DIRECT 0.3 MG/DL (<0.4); BILIRUBIN,TOTAL 0.6 MG/DL (0.3-1.2); BLOOD UREA NITROGEN 35 MG/DL (9-23); CALCIUM LEVEL 8.2 MG/DL (8.3-10.6); CARBON DIOXIDE LEVEL 24 MMOL/L (20-31); CHLORIDE LEVEL 105 MMOL/L (98-107); CK-MB VALUE MASS 6.5 NG/ML (<3.6); CPK CREATINE PHOSPHOKINASE 331 U/L (46-171); CREATININE FOR GFR 1.06 MG/DL (0.70-1.30); GLOMERULAR FILTRATION RATE > 60.0 (>35); GLUCOSE, FASTING 113 MG/DL (74-106); MB/CK RELATIVE INDEX 1.96 (< OR =4); POTASSIUM SERUM 3.8 MMOL/L (3.5-5.1); SODIUM LEVEL 138 MMOL/L (136-145); TOTAL PROTEIN 5.8 G/DL (5.7-8.2)
[2023-10-02 01:17] LABS: CK-MB VALUE MASS 6.9 NG/ML (<3.6)
[2023-10-02 01:19] LABS: MB/CK RELATIVE INDEX 1.9 (< OR =4)
[2023-10-02] MEDS: ACETAMINOPHEN TAB 650MG DOSE (2X325MG) PO ONE (01:31)
[2023-10-02] MEDS: FUROSEMIDE 40MG/4ML VIAL IV ONE (04:38)
[2023-10-02] MEDS ORDERED: HOME MED LIST COMPLETE! XX SCH (04:50)
[2023-10-02 05:50] VITALS: BP 112/64; TEMP 97.3; O2SAT 95
[2023-10-02] MEDS: DOCUSATE SODIUM 100MG CAPSULE PO SCH (09:00)
[2023-10-02] MEDS: FUROSEMIDE 40 MG TAB PO SCH (09:00)
[2023-10-02] MEDS: ENOXAPARIN 40MG/0.4ML SYRINGE (J1650 PER 10MG) SC SCH (09:00)
[2023-10-02 10:30] VITALS: BP 110/58
[2023-10-02 11:59] LABS: ALBUMIN 2.9 G/DL (3.2-5.2); ALKALINE PHOSPHATASE 106 U/L (46-116); ALT/SGPT 25 U/L (7.0-40); AST/SGOT 37 U/L (<34); BILIRUBIN,TOTAL 0.8 MG/DL (0.3-1.2); BLOOD UREA NITROGEN 35 MG/DL (9-23); C REACTIVE PROTEIN QUANTITATIV 4.9 MG/DL (<1.0); CALCIUM LEVEL 8.5 MG/DL (8.3-10.6); CARBON DIOXIDE LEVEL 27 MMOL/L (20-31); CHLORIDE LEVEL 105 MMOL/L (98-107); CREATININE FOR GFR 0.96 MG/DL (0.70-1.30); GLOMERULAR FILTRATION RATE > 60.0 (>35); GLUCOSE, FASTING 93 MG/DL (74-106); POTASSIUM SERUM 4.4 MMOL/L (3.5-5.1); SODIUM LEVEL 139 MMOL/L (136-145); TOTAL PROTEIN 5.6 G/DL (5.7-8.2)
[2023-10-02 12:04] LABS: PROLACTIN 12.46 NG/ML (2.1-17.7)
[2023-10-02 12:08] LABS: PROCALCITONIN 0.11 ng/ml
[2023-10-02] MEDS: ACETAMINOPHEN TAB 650MG DOSE (2X325MG) PO PRN (13:58)
[2023-10-02 14:18] LABS: ABG BASE EXCESS 2.2 (-2.0-2.0); ABG HCO3 25.6 MMOL/L (22.0-26.0); ABG O2 SATURATION 96.4 % (95.0-99.0); ABG PARTIAL PRESSURE O2 83.7 mmHg (75.0-100.0); ABG STANDARD HCO3 26.4 MMOL/L. (22.0-26.0); ABG TOTAL CO2 26.7 MMOL/L (23.0-31.0)
[2023-10-02 15:45] VITALS: BP 137/69; TEMP 97.5; O2SAT 95
[2023-10-02 19:28] VITALS: BP 130/69; TEMP 97.9; O2SAT 94
[2023-10-03] MEDS: NYSTATIN 100,000 UNITS/GM TOPICAL PWD 15GM TOP PRN (04:57)
[2023-10-03 06:00] VITALS: BP 106/57; TEMP 97.9; O2SAT 96
[2023-10-03 08:36] LABS: HEMATOCRIT 36.8 % (42.0-52.0); HEMOGLOBIN 11.9 g/dl (13.5-17.5); MEAN CORPUSCULAR HEMOGLOBIN 28.3 pg (27.0-33.0); MEAN CORPUSCULAR HGB CONC 32.3 g/dl (32.0-36.5); MEAN CORPUSCULAR VOLUME 87.6 fl (80.0-96.0); PLATELET COUNT, AUTOMATED 190 10^3/uL (150-450); WHITE BLOOD COUNT 6.8 10^3/uL (4.0-10.0)
[2023-10-03 08:42] LABS: ALBUMIN 2.5 G/DL (3.2-5.2); ALKALINE PHOSPHATASE 96 U/L (46-116); ALT/SGPT 23 U/L (7.0-40); AST/SGOT 37 U/L (<34); BILIRUBIN,TOTAL 0.5 MG/DL (0.3-1.2); BLOOD UREA NITROGEN 28 MG/DL (9-23); CARBON DIOXIDE LEVEL 27 MMOL/L (20-31); CHLORIDE LEVEL 106 MMOL/L (98-107); CREATININE FOR GFR 0.88 MG/DL (0.70-1.30); GLOMERULAR FILTRATION RATE > 60.0 (>35); GLUCOSE, FASTING 112 MG/DL (74-106); SODIUM LEVEL 139 MMOL/L (136-145); TOTAL PROTEIN 5.5 G/DL (5.7-8.2)
[2023-10-03 14:00] VITALS: BP 139/67; TEMP 97.9; O2SAT 96
[2023-10-03 22:00] VITALS: BP 138/66; TEMP 98.1; O2SAT 92
[2023-10-04 05:50] VITALS: BP 124/64; TEMP 97.9; O2SAT 98
[2023-10-04 07:58] LABS: BASO # 0.1 10^3/uL (0.0-0.2); BASO % 0.7 % (0.0-1.0); EOS # 0.6 10^3/uL (0.0-0.5); EOS % 7.6 % (0.0-3.0); HEMATOCRIT 35.4 % (42.0-52.0); HEMOGLOBIN 11.7 g/dl (13.5-17.5); LYMPH # 2.6 10^3/uL (1.5-5.0); LYMPH % 31.1 % (24.0-44.0); MEAN CORPUSCULAR HGB CONC 33.1 g/dl (32.0-36.5); MEAN CORPUSCULAR VOLUME 87.8 fl (80.0-96.0); MONO % 11.7 % (2.0-8.0); NEUTROPHILS % 48.8 % (36.0-66.0); PLATELET COUNT, AUTOMATED 196 10^3/uL (150-450); RED BLOOD COUNT 4.03 10^6/uL (4.30-6.10); WHITE BLOOD COUNT 8.2 10^3/uL (4.0-10.0)
[2023-10-04 14:20] VITALS: BP 109/56; TEMP 97.7; O2SAT 97
[2023-10-04 14:45] VITALS: BP 131/63; TEMP 97.5; O2SAT 94
[2023-10-04 21:21] VITALS: BP 130/64; TEMP 98.1; O2SAT 95
[2023-10-05 06:20] LABS: BASO # 0.1 10^3/uL (0.0-0.2); BASO % 0.8 % (0.0-1.0); EOS # 0.6 10^3/uL (0.0-0.5); EOS % 8.1 % (0.0-3.0); HEMATOCRIT 34.7 % (42.0-52.0); HEMOGLOBIN 11.6 g/dl (13.5-17.5); LYMPH # 2.2 10^3/uL (1.5-5.0); LYMPH % 28.5 % (24.0-44.0); MEAN CORPUSCULAR HEMOGLOBIN 29.1 pg (27.0-33.0); MEAN CORPUSCULAR HGB CONC 33.4 g/dl (32.0-36.5); MEAN CORPUSCULAR VOLUME 87.2 fl (80.0-96.0); MONO # 0.9 10^3/uL (0.0-0.8); NEUTROPHILS # 3.9 10^3/uL (1.5-8.5); NEUTROPHILS % 50.3 % (36.0-66.0); PLATELET COUNT, AUTOMATED 187 10^3/uL (150-450); RED BLOOD COUNT 3.98 10^6/uL (4.30-6.10); WHITE BLOOD COUNT 7.8 10^3/uL (4.0-10.0)
[2023-10-05 06:25] VITALS: BP 147/90; TEMP 97.8; O2SAT 96
[2023-10-05 06:48] LABS: BLOOD UREA NITROGEN 21 MG/DL (9-23); CALCIUM LEVEL 8.1 MG/DL (8.3-10.6); CARBON DIOXIDE LEVEL 26 MMOL/L (20-31); CHLORIDE LEVEL 108 MMOL/L (98-107); CREATININE FOR GFR 0.82 MG/DL (0.70-1.30); GLOMERULAR FILTRATION RATE > 60.0 (>35); GLUCOSE, FASTING 84 MG/DL (74-106); MAGNESIUM LEVEL 1.7 MG/DL (1.8-2.4); POTASSIUM SERUM 4.1 MMOL/L (3.5-5.1); SODIUM LEVEL 141 MMOL/L (136-145)
[2023-10-05] MEDS: MAG SULF 1GM/100ML (MAG RUN) 1 GM in IV 1 EA IV ONE (09:25)
[2023-10-05 14:32] VITALS: BP 104/44; TEMP 97.9; O2SAT 94
[2023-10-05] MEDS: cefTRIAXone SOD 1 GM in D5W MINI-BAG PLUS 50 ML IV SCH (18:16)
[2023-10-05 21:35] VITALS: BP 125/63; TEMP 98.1; O2SAT 93
[2023-10-06 06:49] VITALS: BP 105/64; TEMP 98.1; O2SAT 94
[2023-10-06] MEDS ORDERED: MAG SULF 1GM/100ML (MAG RUN) 1 GM in IV 1 EA IV ONE (08:00)
[2023-10-06 08:25] LABS: ALBUMIN 2.7 G/DL (3.2-5.2); ALKALINE PHOSPHATASE 108 U/L (46-116); ALT/SGPT 22 U/L (7.0-40); AST/SGOT 19 U/L (<34); BILIRUBIN,TOTAL 0.3 MG/DL (0.3-1.2); BLOOD UREA NITROGEN 19 MG/DL (9-23); CALCIUM LEVEL 8.5 MG/DL (8.3-10.6); CARBON DIOXIDE LEVEL 27 MMOL/L (20-31); CHLORIDE LEVEL 106 MMOL/L (98-107); CREATININE FOR GFR 0.85 MG/DL (0.70-1.30); GLOMERULAR FILTRATION RATE > 60.0 (>35); GLUCOSE, FASTING 87 MG/DL (74-106); MAGNESIUM LEVEL 1.9 MG/DL (1.8-2.4); POTASSIUM SERUM 3.9 MMOL/L (3.5-5.1); SODIUM LEVEL 140 MMOL/L (136-145); TOTAL PROTEIN 5.7 G/DL (5.7-8.2)
[2023-10-06 14:07] VITALS: BP 120/61; TEMP 97.7; O2SAT 94
[2023-10-06 19:44] VITALS: BP 120/60; TEMP 97.3; O2SAT 94
[2023-10-07 06:07] VITALS: BP 134/80; TEMP 97.9; O2SAT 94
[2023-10-07 09:14] VITALS: BP 136/80
[2023-10-07 14:00] VITALS: BP 111/53; TEMP 97.9; O2SAT 95
[2023-10-07] MEDS: POTASSIUM CHLORIDE 10MEQ SR TABLET PO SCH (16:23)
[2023-10-07 20:08] VITALS: BP 139/74; TEMP 97.9; O2SAT 96
[2023-10-08 05:25] VITALS: BP 142/73; TEMP 97.9; O2SAT 96
[2023-10-08 14:00] VITALS: BP 141/73; TEMP 97.7; O2SAT 94
[2023-10-08 20:40] VITALS: BP 135/71
[2023-10-08 20:44] VITALS: BP 135/71; TEMP 97.7; O2SAT 93
[2023-10-08] MEDS ORDERED: ASPERCREME TOP PRN (22:30)
[2023-10-09 06:11] VITALS: BP 132/78; TEMP 98.1; O2SAT 92
[2023-10-09 07:22] LABS: BASO # 0.1 10^3/uL (0.0-0.2); BASO % 1.2 % (0.0-1.0); EOS # 0.6 10^3/uL (0.0-0.5); EOS % 8.3 % (0.0-3.0); HEMATOCRIT 38.6 % (42.0-52.0); HEMOGLOBIN 12.8 g/dl (13.5-17.5); LYMPH # 2.3 10^3/uL (1.5-5.0); LYMPH % 29.7 % (24.0-44.0); MEAN CORPUSCULAR HEMOGLOBIN 29.2 pg (27.0-33.0); MEAN CORPUSCULAR HGB CONC 33.2 g/dl (32.0-36.5); MEAN CORPUSCULAR VOLUME 88.1 fl (80.0-96.0); MONO # 0.9 10^3/uL (0.0-0.8); MONO % 11.7 % (2.0-8.0); NEUTROPHILS # 3.8 10^3/uL (1.5-8.5); NEUTROPHILS % 48.8 % (36.0-66.0); PLATELET COUNT, AUTOMATED 222 10^3/uL (150-450); RED BLOOD COUNT 4.38 10^6/uL (4.30-6.10); WHITE BLOOD COUNT 7.7 10^3/uL (4.0-10.0)
[2023-10-09 07:45] LABS: BLOOD UREA NITROGEN 21 MG/DL (9-23); CALCIUM LEVEL 8.9 MG/DL (8.3-10.6); CARBON DIOXIDE LEVEL 26 MMOL/L (20-31); CHLORIDE LEVEL 105 MMOL/L (98-107); CREATININE FOR GFR 0.88 MG/DL (0.70-1.30); GLOMERULAR FILTRATION RATE > 60.0 (>35); GLUCOSE, FASTING 81 MG/DL (74-106); POTASSIUM SERUM 4.2 MMOL/L (3.5-5.1); SODIUM LEVEL 140 MMOL/L (136-145)
[2023-10-09] MEDS ORDERED: CEFD1CAP9 PO (13:39)
[2023-10-09] MEDS ORDERED: TERA5CAP3 PO (13:39)
[2023-10-10] MEDS ORDERED: CEFD1CAP9 PO (11:42)
== END 2023-10-09 15:45 | disposition home health service (06) ==
LOC: M ED 23:16 → M ED INP 23:17 → INTOOBSV 10-02 04:34 → UNDOADMOB 10-02 04:34 → M ED INP 10-02 04:34 → M MS5PR 10-02 05:56 → M ED INP 10-02 05:56 → UNDODISOB 10-09 15:45
PROVIDERS: ADMIT Preventive Medicine Undersea and Hyperbaric Medicine; ATTEND Hospitalist
DX: R60.0 Localized edema (principal); R54 Age-related physical debility; I11.9 Hypertensive heart disease without heart failure; I73.9 Peripheral vascular disease, unspecified; A80.9 Acute poliomyelitis, unspecified; N40.0 Benign prostatic hyperplasia without lower urinary tract symptoms; M48.00 Spinal stenosis, site unspecified; M21.371 Foot drop, right foot; R29.6 Repeated falls; Z79.4 Long term (current) use of insulin; Z79.899 Other long term (current) drug therapy; Z88.8 Allergy status to other drugs, medicaments and biological substances
CPT/HCPCS: 36415; 70450; 70551; 71045; 73521; 73552; 73700; 80048; 80053; 80076; 81001; 82140; 82550; 82553; 82803; 83605; 83735; 83880; 84145; 84146; 84484; 85025; 85027; 85652; 86140; 87088; 87186; 93005; 93041; 93925; 93970; 94760; 96361; 96365; 96366; 96375; 97110; 97116; 97161; 97165; 97530; 97535; 99285; G0378; J0696; J1940; J3475

== ENCOUNTER → 2024-07-10 | Outpatient (REF) | payer MEDICARE, BC ==
[~2024-07-10] MED LIST changes: +CEFD1CAP9 PO
== END ==
LOC: M LAB REF 17:52
PROVIDERS: ATTEND Internal Medicine
DX: L89.92 Pressure ulcer of unspecified site, stage 2 (principal)

== ENCOUNTER 2025-05-12 12:31 | Inpatient (IN) | payer MEDICARE, MEDICAID ==
[~2025-05-12] VITALS: Ht 165.1 cm; Wt 115.1 kg
[~2025-05-12 12:31] MED LIST changes: -FLOM0.4C39 PO; +MAG30ORA18 PO; -MYLASSUD PO; +TAMS-18 PO
[2025-05-12 13:51] LABS: BASO # 0.1 10^3/uL (0.0-0.2); BASO % 0.6 % (0.0-1.0); EOS # 1.3 10^3/uL (0.0-0.5); EOS % 13.8 % (0.0-3.0); LYMPH # 1.1 10^3/uL (1.5-5.0); LYMPH % 11.7 % (24.0-44.0); MONO # 0.9 10^3/uL (0.0-0.8); MONO % 9.4 % (2.0-8.0); NEUTROPHILS # 6.2 10^3/uL (1.5-8.5); NEUTROPHILS % 64.2 % (36.0-66.0); PLATELET COUNT, AUTOMATED 274 10^3/uL (150-450)
[2025-05-12 14:16] LABS: KETONE, URINE AUTO RFX NEGATIVE (NEGATIVE); MUCUS, URINE RFX SMALL (NEGATIVE); NITRITE, URINE AUTO RFX NEGATIVE (NEGATIVE); RBC, URINE AUTO RFX 2 /HPF (0-3); SQUAM EPITHELIAL CELL UR AURFX 2 /HPF (0-6); WBC, URINE AUTO RFX 7 /HPF (0-3)
[2025-05-12 14:22] LABS: LEUKOCYTE ESTERASE UR AUTO RFX 1+ (NEGATIVE)
[2025-05-12 14:24] LABS: C REACTIVE PROTEIN QUANTITATIV 6.41 MG/DL (<1.0)
[2025-05-12 14:25] LABS: ALT/SGPT 41.0 U/L (7.0-40); AST/SGOT 58.0 U/L (<34); CALCIUM LEVEL 8.8 MG/DL (8.3-10.6); CARBON DIOXIDE LEVEL 24.0 MMOL/L (20-31); CHLORIDE LEVEL 108.0 MMOL/L (98-107); CREATININE FOR GFR 1.94 MG/DL (0.70-1.30); GLOMERULAR FILTRATION RATE 32.9 (>35); POTASSIUM SERUM 5.2 MMOL/L (3.5-5.1); SODIUM LEVEL 141.0 MMOL/L (136-145)
[2025-05-12 14:44] LABS: INR 1.12
[2025-05-12] MEDS: cefTRIAXone SOD 2 GM in DEXTROSE 5% (D5W) ADV/MINI-BAG 50 ML IV ONE (16:09)
[2025-05-12] MEDS: NS (Normal Saline) 0.9% 1,000 ML IV SCH (16:09)
[2025-05-12] MEDS: LIDOCAINE 2% 5 ML JELLY UROJET TOP ONE (18:15)
[2025-05-12 19:00] VITALS: BP 98/36; TEMP 98.6; O2SAT 95
[2025-05-12] MEDS: NS 500 ML IV ONE (19:13)
[2025-05-12] MEDS: VANCOMYCIN HCL 2,000 MG, VIAL MATE ADAPTER 1 EACH in NS 500 ML IV ONE (19:55)
[2025-05-12 20:57] VITALS: BP 150/53; TEMP 98.4; O2SAT 93
[2025-05-13] MEDS: PIPERACILLIN/TAZOBACTAM SOD 3.375 GM in DEXTROSE 5% (D5W) ADV/MINI-BAG 50 ML IV SCH
[2025-05-13 04:55] VITALS: BP 115/56; TEMP 99.8; O2SAT 94
[2025-05-13 06:50] LABS: PLATELET COUNT, AUTOMATED 239 10^3/uL (150-450)
[2025-05-13 07:40] LABS: ALT/SGPT 30.0 U/L (7.0-40); AST/SGOT 41.0 U/L (<34); CALCIUM LEVEL 7.9 MG/DL (8.3-10.6); CARBON DIOXIDE LEVEL 24.0 MMOL/L (20-31); CHLORIDE LEVEL 110.0 MMOL/L (98-107); CREATININE FOR GFR 1.66 MG/DL (0.70-1.30); GLOMERULAR FILTRATION RATE 39.7 (>35); POTASSIUM SERUM 4.4 MMOL/L (3.5-5.1); SODIUM LEVEL 143.0 MMOL/L (136-145)
[2025-05-13] MEDS ORDERED: VANCOMYCIN HCL 1,000 MG, VIAL MATE ADAPTER 1 EACH in NS 250 ML IV SCH (08:00)
[2025-05-13] MEDS: HEPARIN SOD 5000 UNITS/ML 1 ML VIAL/SYRINGE SC SCH (09:00)
[2025-05-13] MEDS ORDERED: ZOLO100T PO (10:26)
[2025-05-13] MEDS ORDERED: AMMO12LO TOP (10:26)
[2025-05-13] MEDS ORDERED: MED REC IN PROGRESS XX SCH (10:40)
[2025-05-13] MEDS ORDERED: HOME MED LIST COMPLETE! XX SCH (12:30)
[2025-05-13 13:30] VITALS: BP 100/44; TEMP 99.8; O2SAT 93
[2025-05-13 13:45] VITALS: BP 108/40; TEMP 99.8; O2SAT 92
[2025-05-13] MEDS: IPRATROPIUM 0.5 MG/ALBUTEROL 2.5 MG INH SOL UD 3 ML NEB STA (14:27)
[2025-05-13 14:40] LABS: ABG BASE EXCESS -1.0 (-2.0-2.0); ABG HCO3 23.2 MMOL/L (22.0-26.0); ABG O2 SATURATION 94.7 % (95.0-99.0); ABG PARTIAL PRESSURE CO2 36.6 mmHg (35.0-45.0); ABG PARTIAL PRESSURE O2 75.4 mmHg (75.0-100.0); ABG STANDARD HCO3 23.6 MMOL/L. (22.0-26.0); ABG TOTAL CO2 24.3 MMOL/L (23.0-31.0); ABG pH (ARTERIAL) 7.419 UNITS (7.350-7.450)
[2025-05-13 16:30] VITALS: BP 110/50
[2025-05-13] MEDS: cefTRIAXone SOD 1 GM in DEXTROSE 5% (D5W) ADV/MINI-BAG 50 ML IV SCH (16:31)
[2025-05-13] MEDS: FUROSEMIDE 20 MG/2 ML VIAL IV ONE (16:31)
[2025-05-13] MEDS: IPRATROPIUM 0.5 MG/ALBUTEROL 2.5 MG INH SOL UD 3 ML NEB SCH (20:03)
[2025-05-13 20:57] VITALS: BP 120/70; TEMP 99; O2SAT 90
[2025-05-13] MEDS: MAGNESIUM OXIDE 400 MG TAB PO SCH (21:07)
[2025-05-13] MEDS: SERTRALINE 100 MG TAB PO SCH (21:07)
[2025-05-13] MEDS: TERAZOSIN 5MG CAPSULE PO SCH (21:09)
[2025-05-14 06:08] LABS: PLATELET COUNT, AUTOMATED 225 10^3/uL (150-450)
[2025-05-14 06:25] VITALS: BP 134/63; TEMP 98.7; O2SAT 92
[2025-05-14 06:32] LABS: CALCIUM LEVEL 7.8 MG/DL (8.3-10.6); CARBON DIOXIDE LEVEL 25.0 MMOL/L (20-31); CHLORIDE LEVEL 113.0 MMOL/L (98-107); CREATININE FOR GFR 1.37 MG/DL (0.70-1.30); GLOMERULAR FILTRATION RATE 49.9 (>35); POTASSIUM SERUM 3.9 MMOL/L (3.5-5.1); SODIUM LEVEL 147.0 MMOL/L (136-145)
[2025-05-14 12:00] VITALS: BP 105/58; TEMP 98.7; O2SAT 95
[2025-05-14] MEDS: CEFPODOXIME PROXETIL 200 MG TABLET PO SCH (20:31)
[2025-05-14 20:33] VITALS: BP 125/56; TEMP 100; O2SAT 92
[2025-05-15 06:13] VITALS: BP 110/80; TEMP 98.7; O2SAT 88
[2025-05-15 08:07] LABS: PLATELET COUNT, AUTOMATED 202 10^3/uL (150-450)
[2025-05-15 08:33] LABS: CALCIUM LEVEL 7.4 MG/DL (8.3-10.6); CARBON DIOXIDE LEVEL 25.0 MMOL/L (20-31); CHLORIDE LEVEL 112.0 MMOL/L (98-107); CREATININE FOR GFR 1.04 MG/DL (0.70-1.30); GLOMERULAR FILTRATION RATE 69.5 (>35); POTASSIUM SERUM 4.3 MMOL/L (3.5-5.1); SODIUM LEVEL 147.0 MMOL/L (136-145)
[2025-05-15] MEDS: FUROSEMIDE 40 MG TAB PO SCH (09:36)
[2025-05-15 14:00] VITALS: BP 161/69; TEMP 98.2; O2SAT 96
[2025-05-15 19:48] VITALS: BP 125/59; TEMP 97.9; O2SAT 98
[2025-05-15 21:35] VITALS: BP 108/54; TEMP 101.3; O2SAT 92
[2025-05-15] MEDS: ACETAMINOPHEN 500 MG TAB PO PRN (22:45)
[2025-05-15 23:07] LABS: BASO # 0.1 10^3/uL (0.0-0.2); BASO % 0.4 % (0.0-1.0); EOS # 2.2 10^3/uL (0.0-0.5); EOS % 16.7 % (0.0-3.0); LYMPH # 1.3 10^3/uL (1.5-5.0); LYMPH % 9.9 % (24.0-44.0); MONO # 1.1 10^3/uL (0.0-0.8); MONO % 8.3 % (2.0-8.0); NEUTROPHILS # 8.6 10^3/uL (1.5-8.5); NEUTROPHILS % 64.4 % (36.0-66.0); PLATELET COUNT, AUTOMATED 209 10^3/uL (150-450)
[2025-05-15 23:37] LABS: CALCIUM LEVEL 7.6 MG/DL (8.3-10.6); CARBON DIOXIDE LEVEL 29.0 MMOL/L (20-31); CHLORIDE LEVEL 107.0 MMOL/L (98-107); CREATININE FOR GFR 1.14 MG/DL (0.70-1.30); GLOMERULAR FILTRATION RATE 62.3 (>35); POTASSIUM SERUM 3.9 MMOL/L (3.5-5.1); SODIUM LEVEL 145.0 MMOL/L (136-145)
[2025-05-16 00:12] VITALS: TEMP 100.4
[2025-05-16] MEDS: IPRATROPIUM 0.5 MG/ALBUTEROL 2.5 MG INH SOL UD 3 ML NEB PRN (00:18)
[2025-05-16 00:31] LABS: APPEARANCE, URINE HAZY (CLEAR); BACTERIA, URINE AUTO NEGATIVE (NEGATIVE); BILIRUBIN, URINE AUTO NEGATIVE (NEGATIVE); BLOOD, URINE BLOOD 2+ (NEGATIVE); GLUCOSE, URINE (UA) AUTO NEGATIVE (NEGATIVE); KETONE, URINE AUTO NEGATIVE (NEGATIVE); LEUKOCYTE ESTERASE, URINE AUTO 1+ (NEGATIVE); MUCUS, URINE SMALL (NEGATIVE); NITRITE, URINE AUTO NEGATIVE (NEGATIVE); PROTEIN, URINE AUTO 1+ mg/dL (NEGATIVE); RBC, URINE AUTO 14 /HPF (0-3); SPECIFIC GRAVITY URINE AUTO 1.017 (1.002-1.035); SQUAMOUS EPITHELIAL CELL UR AU 0 /HPF (0-6); UROBILINOGEN, URINE AUTO 0.2 mg/dL (0.0-2.0); WBC, URINE AUTO 13 /HPF (0-3)
[2025-05-16 03:40] VITALS: BP 101/55; TEMP 98.6; O2SAT 96
[2025-05-16 06:26] LABS: PLATELET COUNT, AUTOMATED 201 10^3/uL (150-450)
[2025-05-16 06:49] LABS: CALCIUM LEVEL 7.7 MG/DL (8.3-10.6); CARBON DIOXIDE LEVEL 28.0 MMOL/L (20-31); CHLORIDE LEVEL 108.0 MMOL/L (98-107); CREATININE FOR GFR 1.0 MG/DL (0.70-1.30); GLOMERULAR FILTRATION RATE 72.8 (>35); POTASSIUM SERUM 3.9 MMOL/L (3.5-5.1); SODIUM LEVEL 143.0 MMOL/L (136-145)
[2025-05-16 08:23] LABS: RSV AMPLIFICATION NEGATIVE (NEGATIVE)
[2025-05-16] MEDS: predniSONE 20 MG TAB PO ONE (12:47)
[2025-05-16] MEDS: LORATADINE 10 MG TAB PO ONE (12:48)
[2025-05-16 14:00] VITALS: BP 120/61; TEMP 98.4; O2SAT 95
[2025-05-16 20:12] VITALS: BP 123/62; TEMP 98.4; O2SAT 95
[2025-05-17 05:30] VITALS: BP 130/60; TEMP 98.7; O2SAT 95
[2025-05-17 06:38] LABS: PLATELET COUNT, AUTOMATED 223 10^3/uL (150-450)
[2025-05-17 07:02] LABS: CALCIUM LEVEL 7.8 MG/DL (8.3-10.6); CARBON DIOXIDE LEVEL 30 MMOL/L (20-31); CHLORIDE LEVEL 106 MMOL/L (98-107); CREATININE FOR GFR 0.91 MG/DL (0.70-1.30); GLOMERULAR FILTRATION RATE 81.6 (>35); POTASSIUM SERUM 4.2 MMOL/L (3.5-5.1); SODIUM LEVEL 143 MMOL/L (136-145)
[2025-05-17 09:18] LABS: ALT/SGPT 23 U/L (7.0-40); AST/SGOT 19 U/L (<34)
[2025-05-17 14:19] VITALS: BP 127/86; TEMP 99; O2SAT 95
[2025-05-17 19:58] VITALS: BP 129/56; TEMP 98.7; O2SAT 94
[2025-05-17] MEDS: ENOXAPARIN 40 MG/0.4 ML SYRINGE (J1650 PER 10MG) SC SCH (21:00)
[2025-05-18 06:00] VITALS: BP 113/60; TEMP 99.2; O2SAT 95
[2025-05-19 05:55] VITALS: BP 139/74; TEMP 98.4; O2SAT 95
[2025-05-20 06:18] VITALS: BP 132/61; TEMP 98; O2SAT 96
[2025-05-20 06:50] LABS: PLATELET COUNT, AUTOMATED 256 10^3/uL (150-450)
[2025-05-21 06:15] VITALS: BP 114/58; TEMP 98.2; O2SAT 96
[2025-05-22 05:58] VITALS: BP 145/67; TEMP 98; O2SAT 96
[2025-05-22 14:00] VITALS: BP 103/58; TEMP 98.3; O2SAT 94
[2025-05-22 14:55] LABS: BASO # 0.1 10^3/uL (0.0-0.2); BASO % 0.6 % (0.0-1.0); EOS # 2.3 10^3/uL (0.0-0.5); EOS % 18.5 % (0.0-3.0); LYMPH # 2.1 10^3/uL (1.5-5.0); LYMPH % 16.5 % (24.0-44.0); MONO # 1.0 10^3/uL (0.0-0.8); MONO % 7.9 % (2.0-8.0); NEUTROPHILS # 7.1 10^3/uL (1.5-8.5); NEUTROPHILS % 56.3 % (36.0-66.0); PLATELET COUNT, AUTOMATED 306 10^3/uL (150-450)
[2025-05-22 15:27] LABS: CALCIUM LEVEL 7.9 MG/DL (8.3-10.6); CARBON DIOXIDE LEVEL 29.0 MMOL/L (20-31); CHLORIDE LEVEL 104.0 MMOL/L (98-107); CREATININE FOR GFR 0.9 MG/DL (0.70-1.30); GLOMERULAR FILTRATION RATE 82.7 (>35); POTASSIUM SERUM 4.3 MMOL/L (3.5-5.1); SODIUM LEVEL 142.0 MMOL/L (136-145)
[2025-05-22 20:50] VITALS: BP 125/88; TEMP 99.1; O2SAT 96
[2025-05-23 06:12] VITALS: BP 113/54; TEMP 98.2; O2SAT 94
[2025-05-23 08:09] LABS: PLATELET COUNT, AUTOMATED 273 10^3/uL (150-450)
[2025-05-23] MEDS: SANTYL OINT 30GM TOP SCH (09:00)
[2025-05-23] MEDS: HYDROCORTISONE 1% CREAM 30 GM TOP PRN (11:05)
[2025-05-23 14:00] VITALS: BP 116/56; TEMP 98.1; O2SAT 98
[2025-05-24 05:08] VITALS: BP 117/57; TEMP 98.3; O2SAT 94
[2025-05-25 05:25] VITALS: TEMP 98.5; O2SAT 99
[2025-05-26 05:20] VITALS: BP 135/63; TEMP 98.2; O2SAT 97
[2025-05-26 07:51] LABS: PLATELET COUNT, AUTOMATED 317 10^3/uL (150-450)
[2025-05-26 18:15] VITALS: BP 119/60; TEMP 98.4; O2SAT 94
[2025-05-27 06:12] VITALS: BP 139/65; TEMP 98.3; O2SAT 95
[2025-05-28 09:21] VITALS: BP 141/60
[2025-05-28] MEDS ORDERED: ACET-683 PO (10:04)
== END 2025-05-28 12:33 | disposition home health service (06) | DRG 872 ==
LOC: M ED 12:31 → M ED INP 17:29 → M MS5PR 18:40
PROVIDERS: ADMIT Student in an Organized Health Care Education/Training Program; ATTEND Internal Medicine
DX: A41.9 Sepsis, unspecified organism (principal); I50.32 Chronic diastolic (congestive) heart failure; N39.0 Urinary tract infection, site not specified; N17.9 Acute kidney failure, unspecified; N13.8 Other obstructive and reflux uropathy; I11.0 Hypertensive heart disease with heart failure; N40.1 Benign prostatic hyperplasia with lower urinary tract symptoms; Z05.1 Observation and evaluation of newborn for suspected infectious condition ruled out; I87.8 Other specified disorders of veins; Z79.899 Other long term (current) drug therapy; Z88.8 Allergy status to other drugs, medicaments and biological substances; Z66 Do not resuscitate; R21 Rash and other nonspecific skin eruption